=== PATIENT | female | born 1965 | race Caucasian/White ===

== ENCOUNTER → 2017-08-19 | Outpatient (CLI) | payer BC | LOC: M EKG 17:04 | DX: K58.9 Irritable bowel syndrome, unspecified (principal) ==

== ENCOUNTER → 2017-08-31 | Outpatient (CLI) | payer BC ==
[~2017-08-31] MED LIST: E-Z-GAS II EFFERVESCENT PACKET (SODIUM BICARB./CITRIC ACID/SIMETHICONE) As Ordered; E-Z-HD 98% w/w 340GM SUSP BTL As Ordered; E-Z-PAQUE 96% w/w SUSP 176GM BTL As Ordered
== END ==
LOC: M RAD 10:32
DX: R13.10 Dysphagia, unspecified (principal); R12 Heartburn
CPT/HCPCS: 74220

== ENCOUNTER 2017-09-28 11:59 | Day surgery (SDC) | payer BC ==
[2017-09-28] MEDS ORDERED: fentaNYL 100 MCG/2 ML INJECTION (J3010) As Ordered (12:41)
[2017-09-28] MEDS: NS 1,000 ML IV (13:07)
[2017-09-28] MEDS ORDERED: PROPOFOL 200 MG/20 ML VIAL As Ordered (13:21)
[2017-09-28] MEDS ORDERED: LIDOCAINE 2% INJ 100 MG/5 ML SDV (FOR ANES.) As Ordered (13:21)
== END 2017-09-28 15:00 | disposition home or self-care (01) ==
LOC: M OPP 11:59
DX: Z12.11 Encounter for screening for malignant neoplasm of colon (principal); D12.2 Benign neoplasm of ascending colon; K44.9 Diaphragmatic hernia without obstruction or gangrene; K20.0 Eosinophilic esophagitis; R13.10 Dysphagia, unspecified; K58.9 Irritable bowel syndrome, unspecified; K21.9 Gastro-esophageal reflux disease without esophagitis; F32.9 Major depressive disorder, single episode, unspecified; M12.9 Arthropathy, unspecified; Z78.0 Asymptomatic menopausal state; Z87.448 Personal history of other diseases of urinary system
CPT/HCPCS: 45385

== ENCOUNTER → 2020-06-18 | Outpatient (REF) | payer BC ==
[~2020-06-18] MED LIST changes: +BUPR1TAB53 PO; -E-Z-GAS II EFFERVESCENT PACKET (SODIUM BICARB./CITRIC ACID/SIMETHICONE) As Ordered; -E-Z-HD 98% w/w 340GM SUSP BTL As Ordered; -E-Z-PAQUE 96% w/w SUSP 176GM BTL As Ordered; +PANT40TA29 PO; +RANI150T PO
[2020-06-18 18:23] LABS: HEMATOCRIT 46.9 % (36.0-47.0); HEMOGLOBIN 14.8 g/dl (12.0-15.5); MEAN CORPUSCULAR HEMOGLOBIN 29.8 pg (27.0-33.0); MEAN CORPUSCULAR HGB CONC 31.6 g/dl (32.0-36.5); MEAN CORPUSCULAR VOLUME 94.4 fl (80.0-96.0); PLATELET COUNT, AUTOMATED 389 10^3/uL (150-450); RED BLOOD COUNT 4.97 10^6/uL (4.00-5.40); WHITE BLOOD COUNT 8.8 10^3/uL (4.0-10.0)
[2020-06-18 19:41] LABS: ALBUMIN 3.7 GM/DL (3.2-5.2); ALT/SGPT 19 U/L (12-78); BILIRUBIN,TOTAL 0.2 MG/DL (0.2-1.0); BLOOD UREA NITROGEN 11 MG/DL (7-18); CALCIUM LEVEL 9.4 MG/DL (8.5-10.1); CARBON DIOXIDE LEVEL 30 MEQ/L (21-32); CHLORIDE LEVEL 105 MEQ/L (98-107); CREATININE FOR GFR 0.83 MG/DL (0.55-1.30); GLOMERULAR FILTRATION RATE > 60.0 (>51); GLUCOSE, FASTING 75 MG/DL (70-100); POTASSIUM SERUM 4.5 MEQ/L (3.5-5.1); SODIUM LEVEL 140 MEQ/L (136-145); TOTAL PROTEIN 7.1 GM/DL (6.4-8.2)
== END ==
LOC: M SFHCADAM 14:58
PROVIDERS: ATTEND Physician Assistant
DX: J30.89 Other allergic rhinitis (principal); R41.3 Other amnesia; L65.9 Nonscarring hair loss, unspecified; R53.83 Other fatigue

== ENCOUNTER → 2020-08-08 | Outpatient (REF) | payer BC ==
[2020-08-08 15:42] LABS: THYROID PEROXIDASE ANTIBODY < 28.0 U/ML (<60.0)
== END ==
LOC: M SFHCADAM 10:51
PROVIDERS: ATTEND Physician Assistant
DX: E03.9 Hypothyroidism, unspecified (principal)

== ENCOUNTER → 2021-01-26 | Outpatient (CLI) | payer BC ==
[~2021-01-26] MED LIST changes: +LEVO25TA5; +OMEP-218
== END ==
LOC: M LABSMTC 10:50
PROVIDERS: ATTEND Anesthesiology
DX: Z01.812 Encounter for preprocedural laboratory examination (principal); Z11.52 Encounter for screening for COVID-19

== ENCOUNTER 2021-01-29 12:32 | Day surgery (SDC) | payer BC ==
[~2021-01-29] VITALS: Ht 160 cm; Wt 73.7 kg
[~2021-01-29 12:32] MED LIST changes: +NS 1,000 ML IV ONE
--- OUTSIDE RECORDS SUMMARY | 2021-01-29 12:37 | CCD ---
Author Author [facility] [employer] Organization [facility] [employer] Address Unknown Phone Unavailable Care Team Providers Care Personal Banking Officer Name Role Phone Lexi Corona Unavailable PROBLEMS Type Condition ICD9-CM Code [id number] Code Onset Dates Condition S tatus W/U Status Risk SNOMED Code Notes Problem Environmental and seasonal allergies J30.89 Act will confirmed 055207945 Problem Stress incontinence N39.3 Active confirmed 13712802 Resolved after surgery Problem Hypothyroidism (acquired) E03.9 Active confirmed [id number] Responding well to low-dose levothyroxine 25 mcg daily, with less fatigue Problem Depressive disorder F32.9 Active confirmed [id number] She is agreeable to starting the sertraline now, so I have resubmitted that prescription Problem Memory loss R41.3 Active confirmed [id number] She'll start sertraline tonight and I will see her back in a month Problem Flat wart B07.8 Active confirmed [id number] Derm in September Problem Gastroesophageal reflux disease, esophagitis pre sence not specified K21.9 Active confirmed [id number] Her insurance does not cover Nexium, so I am prescribing omeprazole, which she has taken in the past with good results Problem Non-seasonal allergic rhinitis, unspecified trigger J30.89 Active confirmed [id number] I reassured Darlyn araya there is sensation of fluid in her ears is likely due to some eustachian tube dysfunction. She will go back to using nasal spray ALLERGIES No Known Allergies ENCOUNTERS from 1965 to 2021-01-02 Encounter Location Date Provider Diagnosis [facility] [place] [address] [address] [place] [id number] Dec, Lexi Corona Hypothyroidism (acquired) E03.9 IMMUNIZATIONS Vaccine Route Administration Date Status Influenza 6mo & up Fluzone Unknown Dec 24, 2017 Refus ed SOCIAL HISTORY Tobacco Use: Social History Observation Description Date Details (start date - stop date) Former Smoker Sex Assigned At : Social History Observation Description Sex Assigned At Unknown Education: Question Answer Notes Level of Education: Finished High School Audit Question Answer Notes Total Score: 2 Interpretation: Alcohol Education Yazidi: Question Answer Notes Yazidi No yarsanism beliefs that would impact health care. Drug and Alcohol Question Answer Notes Total Score: 0 Interpretation: No problems reported Alcohol Screening: Question Answer Notes Did you have a drink containing alcohol in the past year? No Points 0 Interpretation Negative BMI Care Goal Follow-Up Question Answer Notes Above Normal BMI Follow-Up Dietary management educatio n, guidance, and counseling Tobacco Use: Question Answer Notes Are you a: former smoker How long has it been since you last smoked? > 10 years REASON FOR REFERRAL No Information VITAL SIGNS No information MEDICATIONS Medication SIG (Take, Route, Frequency, Duration) Notes Start Da te End Date Status Omeprazole 20 MG 1 capsule Orally Once a day for 30 Days 1 5 Jul, 2020 Active Sertraline HCl 25 MG 1 tablet Orally Once a day for 30 Days Jul, Active Physical Therapy evaluate and treat Mechanical eval & tx M25.511, pain in right shoulder 33x/wk x for 30 Days Jul, Ac tive Meloxicam 15 MG 1 tablet Orally Once a day as needed for pain fo r 30 Days Jul, Active Levothyroxine Sodium 25 MCG 1 tablet in the morning on an empty stomach Orally Once a day for 30 Days June, Active PROCEDURES No Information RESULTS No Results REASON FOR VISIT levothyroxine MEDICAL (GENERAL) HISTORY Type Description Date Medical History GERD Medical History seasonal allergies Medical History stress incontinence Surgical History umbilical hernia 2006 Surgical History sonogram left breast, and regular biopsy on the right Hospitalization History childbirth Goals Section No Information Health Concerns No Information MEDICAL EQUIPMENT No Information MENTAL STATUS No Information FUNCTIONAL STATUS No Information ASSESSMENTS Encounter Date Diagnosis Assessment Notes Treatment Notes Treatm ent Clinical Notes Dec, Hypothyroidism (acquired) (ICD-10 - E03.9) PLAN OF TREATMENT Medication Medication Name Sig Start Date Stop Date Levothyroxine Sodium 25 MCG 1 tablet in the morning on an empty stomach Orally Once a day for 30 Days June, Physical Therapy evaluate and treat Mechanical eval & tx M25.511, pain in right shoulder 33x/wk x for 30 Days Jul, Insurance Providers Payer Name Payer Address Payer Phone Insured Name Patient Relati onship to Insured Coverage Start Date Coverage End Date [facility] [address] [address] [facility] [id number] [address] [facility] PPO [phone] [facility] [place] [id number] [address] self
--- OUTSIDE RECORDS SUMMARY | 2021-01-29 12:37 | CCD ---
Author Author [facility] Organization [facility] Address Unknown Phone Unavailable Support Name Relationship Address Phone RE Next Of Kin Unknown Unavailable CONTACT, NO Next Of Kin Unknown Unavailable [employer] Next Of Kin [address] [place] [address] [employer] Next Of Kin [address] [address] [place] FAYE PALMER Next Of [place] [address] [place] [address] [address] [place] [address] FAYE PALMER Next Of Kin [address] [address] faye palmer [facility] [address] [place] [phone] Care Team Providers Care Clay Maker Name Role Phone Adonis REED MD Unavailable Unavailable REED, L MARCUS BRITTON Unavailable Unavailable REED, L MARCUS BRITTON Unavailable Unavailable REED, L MARCUS BRITTON Unavailable Unavailable REED, L MARCUS BRITTON Unavailable Unavailable REED, L MARCUS BRITTON Unavailable Unavailable REED, L MARCUS BRITTON Unavailable Unavailable REED, L MARCUS BRITTON Unavailable Unavailable REED, L MARCUS BRITTON Unavailable Unavailable REED, L MARCUS BRITTON Unavailable Unavailable REED, L MARCUS BRITTON Unavailable Unavailable REED, L MARCUS BRITTON Unavailable Unavailable REED, L MARCUS BRITTON Unavailable Unavailable REED, L MARCUS BRITTON Unavailable Unavailable REED, L MARCUS BRITTON Unavailable Unavailable REED, L MARCUS BRITTON Unavailable Unavailable REED, L MARCUS BRITTON Unavailable Unavailable REED, L MARCUS BRITTON Unavailable Unavailable REED, L MARCUS BRITTON Unavailable Unavailable REED, L MARCUS BRITTON Unavailable Unavailable REED, L MARCUS BRITTON Unavailable Unavailable REED, L MARCUS BRITTON Unavailable Unavailable REED, L MARCUS BRITTON Unavailable Unavailable REED, L MARCUS BRITTON Unavailable Unavailable REED, L MARCUS BRITTON Unavailable Unavailable REED, L MARCUS BRITTON Unavailable Unavailable REED, L MARCUS BRITTON Unavailable Unavailable REED, L MARCUS BRITTON Unavailable Unavailable REED, L MARCUS BRITTON Unavailable Unavailable REED, L MARCUS BRITTON Unavailable Unavailable REED, L MARCUS BRITTON Unavailable Unavailable REED, L MARCUS BRITTON Unavailable Unavailable REED, L MARCUS BRITTON Unavailable Unavailable REED, L MARCUS BRITTON Unavailable Unavailable REED, L MARCUS BRITTON Unavailable Unavailable REED, L MARCUS BRITTON Unavailable Unavailable REED, L MARCUS BRITTON Unavailable Unavailable REED, L MARCUS BRITTON Unavailable Unavailable REED, L MARCUS BRITTON Unavailable Unavailable REED, L MARCUS BRITTON Unavailable Unavailable REED, L MARCUS BRITTON Unavailable Unavailable REED, L MARCUS BRITTON Unavailable Unavailable REED, L MARCUS BRITTON Unavailable Unavailable REED, L MARCUS BRITTON Unavailable Unavailable REED, L MARCUS BRITTON Unavailable Unavailable REED, L MARCUS BRITTON Unavailable Unavailable REED, L MARCUS BRITTON Unavailable Unavailable REED, L MARCUS BRITTON Unavailable Unavailable REED, L MARCUS BRITTON Unavailable Unavailable REED, L MARCUS BRITTON Unavailable Unavailable REED, L MARCUS BRITTON Unavailable Unavailable REED, L MARCUS BRITTON Unavailable Unavailable REED, L MARCUS BRITTON Unavailable Unavailable REED, L MARCUS BRITTON Unavailable Unavailable REED, L MARCUS BRITTON Unavailable Unavailable REED, L MARCUS BRITTON Unavailable Unavailable REED, L MACRUS BRITTON Unavailable Unavailable REED, L MARCUS BRITTON Unavailable Unavailable REED, L MARCUS BRITTON Unavailable Unavailable REED, L MARCUS BRITTON Unavailable Unavailable REED, L MARCUS BRITTON Unavailable Unavailable REED, L MARCUS BRITTON Unavailable Unavailable REED, L MARCUS BRITTON Unavailable Unavailable REED, L MARCUS BRITTON Unavailable Unavailable REED, L MARCUS BRITTON Unavailable Unavailable REED, L MARCUS BRITTON Unavailable Unavailable REED, L MARCUS BRITTON Unavailable Unavailable REED, L MARCUS BRITTON Unavailable Unavailable REED, L MARCUS BRITTON Unavailable Unavailable REED, L MARCUS BRITTON Unavailable Unavailable REED, L MARCUS BRITTON Unavailable Unavailable REED, L MARCUS BRITTON Unavailable Unavailable REED, L MARCUS BRITTON Unavailable Unavailable REED, L MARCUS BRITTON Unavailable Unavailable REED, L MARCUS BRITTON Unavailable Unavailable REED, L MARCUS BRITTON Unavailable Unavailable REED, L MARCUS BRITTON Unavailable Unavailable REED, L MARCUS BRITTON Unavailable Unavailable REED, L MARCUS RBITTON Unavailable Unavailable REED, L MARCUS BRITTON Unavailable Unavailable REED, L MARCUS BRITTON Unavailable Unavailable REED, L MARCUS BRITTON Unavailable Unavailable REED, L MARCUS BRITTON Unavailable Unavailable REED, L MARCUS BRITTON Unavailable Unavailable REED, L MARCUS MD Unavailable Unavailable Adonis REED MD Unavailable Unavailable Adonis REED MD Unavailable Unavailable Adonis REED MD Unavailable Unavailable Adonis REED MD Unavailable Unavailable Adonis REED MD Unavailable Unavailable Mil, Meghann Unavailable Unavailable Mil, Meghann Unavailable Unavailable Mil, Meghann Unavailable Unavailable Mil, Meghann Unavailable Unavailable Mil, Meghann Unavailable Unavailable Mil, Meghann Unavailable Unavailable Mil, Meghann Unavailable Unavailable Mil, Meghann Unavailable Unavailable Mil, Meghann Unavailable Unavailable Mil, Meghann Unavailable Unavailable Mil, Meghann Unavailable Unavailable Mil, Meghann Unavailable Unavailable Mil, Meghann Unavailable Unavailable Mil, Meghann Unavailable Unavailable Mil, Meghann Unavailable Unavailable Frye, D Debra TANNERY WORKER Unavailable Unavailable Frye, D Debra TANNERY WORKER Unavailable Unavailable Frye, D Debra TANNERY WORKER Unavailable Unavailable Frye, D Debra TANNERY WORKER Unavailable Unavailable Frye, D Debra TANNERY WORKER Unavailable Unavailable Frye, D Debra TANNERY WORKER Unavailable Unavailable Frye, D Debra TANNERY WORKER Unavailable Unavailable Frye, D Debra TANNERY WORKER Unavailable Unavailable Frye, D Debra TANNERY WORKER Unavailable Unavailable Frye, D Debra TANNERY WORKER Unavailable Unavailable Frye, D Debra TANNERY WORKER Unavailable Unavailable Frye, D Debra TANNERY WORKER Unavailable Unavailable Frye, D Debra TANNERY WORKER Unavailable Unavailable Frye, D Debra TANNERY WORKER Unavailable Unavailable Frye, D Debra TANNERY WORKER Unavailable Unavailable Frye, D Debra TANNERY WORKER Unavailable Unavailable Frye, D Debra TANNERY WORKER Unavailable Unavailable Frye, D Debra TANNERY WORKER Unavailable Unavailable Frye, D Debra TANNERY WORKER Unavailable Unavailable Frye, D Debra TANNERY WORKER Unavailable Unavailable Frye, D Debra TANNERY WORKER Unavailable Unavailable Frye, D Debra TANNERY WORKER Unavailable Unavailable Frye, D Debra TANNERY WORKER Unavailable Unavailable Frye, D Debra TANNERY WORKER Unavailable Unavailable Frye, D Debra TANNERY WORKER Unavailable Unavailable Frye, D Debra TANNERY WORKER Unavailable Unavailable Frye, D Debra TANNERY WORKER Unavailable Unavailable Frye, D Debra TANNERY WORKER Unavailable Unavailable Frye, D Debra TANNERY WORKER Unavailable Unavailable Frye, D Debra TANNERY WORKER Unavailable Unavailable Frye, D Debra TANNERY WORKER Unavailable Unavailable Frye, D Debra TANNERY WORKER Unavailable Unavailable Frye, D Debra TANNERY WORKER Unavailable Unavailable Frye, D Debra TANNERY WORKER Unavailable Unavailable Frye, D Debra TANNERY WORKER Unavailable Unavailable Frye, D Debra TANNERY WORKER Unavailable Unavailable Frye, D Debra TANNERY WORKER Unavailable Unavailable Frye, D Debra TANNERY WORKER Unavailable Unavailable Frye, D Debra TANNERY WORKER Unavailable Unavailable Frye, D Debra TANNERY WORKER Unavailable Unavailable Frye, D Debra TANNERY WORKER Unavailable Unavailable Frye, D Debra TANNERY WORKER Unavailable Unavailable Frye, D Debra TANNERY WORKER Unavailable Unavailable Frye, D Debra TANNERY WORKER Unavailable Unavailable Frye, D Debra TANNERY WORKER Unavailable Unavailable Frye, D Debra TANNERY WORKER Unavailable Unavailable Frye, D Debra TANNERY WORKER Unavailable Unavailable Frye, D Debra TANNERY WORKER Unavailable Unavailable Frye, D Debra TANNERY WORKER Unavailable Unavailable Frye, D Debra TANNERY WORKER Unavailable Unavailable Frye, D Debra TANNERY WORKER Unavailable Unavailable Frye, D Debra TANNERY WORKER Unavailable Unavailable Frye, D Debra TANNERY WORKER Unavailable Unavailable Frye, D Debra TANNERY WORKER Unavailable Unavailable Frye, D Debra TANNERY WORKER Unavailable Unavailable Frye, D Debra TANNERY WORKER Unavailable Unavailable Frye, D Debra TANNERY WORKER Unavailable Unavailable Frye, D Debra TANNERY WORKER Unavailable Unavailable Frye, D Debra TANNERY WORKER Unavailable Unavailable Frye, D Debra TANNERY WORKER Unavailable Unavailable Frye, D Debra TANNERY WORKER Unavailable Unavailable Frye, D Debra TANNERY WORKER Unavailable Unavailable Frye, D Debra TANNERY WORKER Unavailable Unavailable Frye, D Debra TANNERY WORKER Unavailable Unavailable Frye, D Debra TANNERY WORKER Unavailable Unavailable Frye, D Debra TANNERY WORKER Unavailable Unavailable Frye, D Debra TANNERY WORKER Unavailable Unavailable Frye, D Debra TANNERY WORKER Unavailable Unavailable Frye, D Debra TANNERY WORKER Unavailable Unavailable Frye, D Debra TANNERY WORKER Unavailable Unavailable Frye, D Debra TANNERY WORKER Unavailable Unavailable Frye, D Debra TANNERY WORKER Unavailable Unavailable Frye, D Debra TANNERY WORKER Unavailable Unavailable Frye, D Debra TANNERY WORKER Unavailable Unavailable Frye, D Debra TANNERY WORKER Unavailable Unavailable Frye, D Debra TANNERY WORKER Unavailable Unavailable Frye, D Debra TANNERY WORKER Unavailable Unavailable Frye, D Debra TANNERY WORKER Unavailable Unavailable Frye, D Debra TANNERY WORKER Unavailable Unavailable Frye, D Debra TANNERY WORKER Unavailable Unavailable Frye, D Debra TANNERY WORKER Unavailable Unavailable Frye, D Debra TANNERY WORKER Unavailable Unavailable Frye, D Debra TANNERY WORKER Unavailable Unavailable Frye, D Debra TANNERY WORKER Unavailable Unavailable Frye, D Debra TANNERY WORKER Unavailable Unavailable Frye, D Debra TANNERY WORKER Unavailable Unavailable Frye, D Debra TANNERY WORKER Unavailable Unavailable Frye, D Debra TANNERY WORKER Unavailable Unavailable Frye, D Debra TANNERY WORKER Unavailable Unavailable Frye, D Debra TANNERY WORKER Unavailable Unavailable Frye, D Debra TANNERY WORKER Unavailable Unavailable Frye, D Debra TANNERY WORKER Unavailable Unavailable Frye, D Debra TANNERY WORKER Unavailable Unavailable Frye, D Debra TANNERY WORKER Unavailable Unavailable Frye, D Debra TANNERY WORKER Unavailable Unavailable Frye, D Debra TANNERY WORKER Unavailable Unavailable Frye, D Debra TANNERY WORKER Unavailable Unavailable Frye, D Debra TANNERY WORKER Unavailable Unavailable Frye, D Debra TANNERY WORKER Unavailable Unavailable Frye, D Debra TANNERY WORKER Unavailable Unavailable Frye, D Debra TANNERY WORKER Unavailable Unavailable Frye, D Debra TANNERY WORKER Unavailable Unavailable Frye, D Debra TANNERY WORKER Unavailable Unavailable Frye, D Debra TANNERY WORKER Unavailable Unavailable Frye, D Debra TANNERY WORKER Unavailable Unavailable Frye, D Debra TANNERY WORKER Unavailable Unavailable Re-disclosure Warning The records that you are about to access may contain information from federally-assisted alcohol or drug abuse programs. If such information is present, then the following federally mandated warning applies: This information has been disclosed to you from records protected by federal confidentiality rules (42 CFR part 2). The federal rules prohibit you from making any further disclosure of this information unless further disclosure is expressly permitted by the written consent of the person to whom it pertains or as otherwise permitted by 42 CFR part 2. A general authorization for the release of medical or other information is NOT sufficient for this purpose. The Federal rules restrict any use of the information to criminally investigate or prosecute any alcohol or drug abuse patient.The records that you are about to access may contain highly sensitive health information, the redisclosure of which is protected by Article 27-F of the [place] Public [employer] law. If you continue you may have access to information: Regarding HIV / AIDS; Provided by facilities licensed or operated by the [place] Office of Mental Health; or Provided by the [place] [facility] Office for People With Developmental Disabilities. If such information is present, then the following [facility] mandated warning applies: This information has been disclosed to you from confidential records which are protected by state law. State law prohibits you from making any further disclosure of this information without the specific written consent of the person to whom it pertains, or as otherwise permitted by law. Any unauthorized further disclosure in violation of state law may result in a fine or custodial sentence or both. A general authorization for the release of medical or other information is NOT sufficient authorization for further disc losure. Family History Family Member Name Family Member Gender Family Member Status Date o f Status Description Data Source(s) Unknown Unknown Problem MEDENT ([facility]) Unknown Unknown Problem MEDENT ([facility], ) Encounters Encounter Providers Location Date Indications Data Source(s ) Unknown [address] [facility] [address] 01/01/2021 12:00:00 AM EDT eCW1 ([facility]) Unknown [address] [facility] [address] 10/25/2020 12:00:00 AM EDT eCW1 ([facility]) Outpatient Referrer: Debra Frye NP 10/15/2020 11:05:09 AM EDT [facility] Outpatient Referrer: Debra Frye NP 10/15/2020 10:00:09 AM EDT [facility] Outpatient Attender: Debra STATON 10/15/2020 0 8:34:44 AM EDT [facility] Unknown [address] [facility] [address] 10/01/2020 12:00:00 AM EDT eCW1 ([facility]) Outpatient Attender: MARCUS Todd Woman manager bench 02:15:00 PM EDT [facility] ([facility]) TeleMedicine Phone E/M by Elizabeth 21-[address] [place] [phone] 08/24/2020 12:00:00 AM EDT eCW1 ([facility]) Outpatient [address] [facility] [address] 08/14/2020 12:00:00 AM EDT eCW1 ([facility]) Unknown [address] [facility] [address] 07/19/2020 12:00:00 AM EDT eCW1 ([facility]) Outpatient [address] [facility] [address] 07/02/2020 12:00:00 AM EDT eCW1 ([facility]) Outpatient [address] [facility] [id number] 06/18/2020 12:00:00 AM EDT eCW1 ([facility]) Outpatient Referrer: Debra Frye NP 04/16/2020 09:59[facility] 03:19[facility]23 [facility] Outpatient Attender: Debra [place] 04/10 11:13:33 AM EST - 04/10/2020 12:17:10 PM [facility] Outpatient Referrer: Meghann Jageer 03/29/2020 09:45:03 AM ES T [facility] Outpatient Referrer: MARCUS REED MD 11/29/2019 12: 00:00 AM EDT Encounter for screening mammogram for malignant neoplasm of breast [facility] Encounter for screening mammogram for ma lignant neoplasm of breast Medications Medication Brand Name Start Date Product Form Dose Route Admi nistrative Instructions Pharmacy Instructions Status Indications Reaction Description Data Source(s) 25 mcg 01/02/2021 12:00:00 AM EDT tablet 30 TAKE ONE TABLET BY MOUTH EVERY MORNING ON AN EMPTY STOMACH TAKE ONE TABLET BY MOUTH EVERY MORNING O N AN EMPTY STOMACH SOLD: 01/02/2021 [facility] SUPREP BOWEL PREP KIT 17.5-3.13-1.6 gram SODIUM, POTASSIUM,M AG SULFATES 10/19/2020 12:00:00 AM EDT recon soln 354 USE DIRECTED USE DIRECTED SOLD: 10/26/2020 [facility] magnesium citrate 58.2 MG/ML Oral Solution Magnesium Citrate 10/19/2020 12:00:00 AM EDT active MEDENT ([facility], ) Suprep Bowel Prep Kit Suprep Bowel Prep Kit 10/19/2020 12:00:00 AM EDT active MEDENT ([facility], ) POLYETHYLENE GLYCOL 3350 142 MG/ML Oral Solution [Miralax] M iralax 10/19/2020 12:00:00 AM EDT active M EDENT ([facility], ) Levothyroxine Sodium 0.025 MG Oral Table t levothyroxine (SYNTHROID, LEVOTHROID) 25 MCG tablet levothyroxine (SYNTHROID, LEVOTHROID) 25 MCG tablet 12:00:00 AM EDT active TAKE ONE TABLET BY MOUTH EVERY MORNING ON AN EMPTY STOMACH [facility] meloxicam 15 MG Oral Tablet meloxicam (MOBIC) 15 MG ta blet meloxicam (MOBIC) 15 MG tablet 10/01/2020 12:00:00 AM EDT active TAKE ONE TABLET BY MOUTH EVERY DAY NEEDED FOR PAIN [facility] Sertraline 25 MG Oral Tablet sertraline (ZOLOFT) 25 MG tablet sertraline (ZOLOFT) 25 MG tablet 10/01/2020 12:00:00 AM EDT 25 mg Oral active Take 25 mg by mouth daily [facility] Omeprazole 20 MG Delayed Release Oral Ca psule omeprazole (PriLOSEC) 20 MG capsule omeprazole (PriLOSEC) 20 MG capsule 10/01/2020 12:00:00 AM EDT 20 mg Oral active Take 20 mg by mouth daily [facility] Physical Therapy evaluate and treat UNK 08/24/2020 12:00:00 AM EDT active Physical Therapy evaluate and tr eat eCW1 ([facility]) Physical Therapy evaluate and treat UNK 08/24/2020 12:00:00 AM EDT active Physical Therapy evaluate and tr eat eCW1 ([facility]) Physical Therapy evaluate and treat UNK 08/24/2020 12:00:00 AM EDT active Physical Therapy evaluate and tr eat eCW1 ([facility]) Physical Therapy evaluate and treat UNK 08/24/2020 12:00:00 AM EDT active Physical Therapy evaluate and tr eat eCW1 ([facility]) Physical Therapy evaluate and treat UNK 08/24/2020 12:00:00 AM EDT active Physical Therapy evaluate and tr eat eCW1 ([facility]) meloxicam 15 MG Oral Tablet Meloxicam 15 MG Meloxicam 15 MG 08/14/2020 12:00:00 AM EDT 1.0 {tablet} active Meloxicam 1 5 MG eCW1 ([facility]) Sertraline 25 MG Oral Tablet Sertraline HCl 25 MG Sertraline HCl 25 MG 08/14/2020 12:00:00 AM EDT 1.0 {tablet} active Sertraline HCl 25 MG eCW1 ([facility]) Sertraline 25 MG Oral Tablet Sertraline HCl 25 MG Sertraline HCl 25 MG 08/14/2020 12:00:00 AM EDT 1.0 {tablet} active Sertraline HCl 25 MG eCW1 ([facility]) 20 mg 08/14/2020 12:00:00 AM EDT capsule,delayed release (DR/EC) 30 TAKE ONE CAPSULE BY MOUTH EVERY DAY TAKE ONE CAPSULE BY MOUTH EVERY DAY SOLD: 08/14/2020 [facility] Omeprazole 20 MG Delayed Release Oral Capsule Omeprazole 20 MG 08/14/2020 12:00:00 AM EDT 1.0 {capsule} active O meprazole 20 MG eCW1 ([facility]) 25 mg 08/14/2020 12:00:00 AM EDT tablet 30 TAKE ONE TABLET BY MOUTH EVERY DAY TAKE ONE TABLET BY MOUTH EVERY DAY SOLD: 10/01/2020 [facility] 15 mg 08/14/2020 12:00:00 AM EDT tablet 30 TAKE ONE TABLET BY MOUTH EVERY DAY NEEDED FOR PAIN TAKE ONE TABLET BY MOUTH EVERY DAY NEEDED FOR PAIN SOLD: 12/04/2020 [facility] 15 mg 08/14/2020 12:00:00 AM EDT tablet 30 TAKE ONE TABLET BY MOUTH EVERY DAY NEEDED FOR PAIN TAKE ONE TABLET BY MOUTH EVERY DAY NEEDED FOR PAIN SOLD: 10/30/2020 [facility] Sertraline 25 MG Oral Tablet Sertraline HCl 25 MG Sertraline HCl 25 MG 08/14/2020 12:00:00 AM EDT 1.0 {tablet} active Sertraline HCl 25 MG eCW1 ([facility]) meloxicam 15 MG Oral Tablet Meloxicam 15 MG Meloxicam 15 MG 08/14/2020 12:00:00 AM EDT 1.0 {tablet} active Meloxicam 1 5 MG eCW1 ([facility]) Sertraline 25 MG Oral Tablet Sertraline HCl 25 MG Sertraline HCl 25 MG 08/14/2020 12:00:00 AM EDT 1.0 {tablet} active Sertraline HCl 25 MG eCW1 ([facility]) 25 mg 08/14/2020 12:00:00 AM EDT tablet 30 TAKE ONE TABLET BY MOUTH EVERY DAY TAKE ONE TABLET BY MOUTH EVERY DAY SOLD: 10/30/2020 [facility] 15 mg 08/14/2020 12:00:00 AM EDT tablet 30 TAKE ONE TABLET BY MOUTH EVERY DAY NEEDED FOR PAIN TAKE ONE TABLET BY MOUTH EVERY DAY NEEDED FOR PAIN SOLD: 10/01/2020 [facility] meloxicam 15 MG Oral Tablet Meloxicam 15 MG Meloxicam 15 MG 08/14/2020 12:00:00 AM EDT 1.0 {tablet} active Meloxicam 1 5 MG eCW1 ([facility]) 20 mg 08/14/2020 12:00:00 AM EDT capsule,delayed release (DR/EC) 30 TAKE ONE CAPSULE BY MOUTH EVERY DAY TAKE ONE CAPSULE BY MOUTH EVERY DAY SOLD: 12/04/2020 [facility] 20 mg 08/14/2020 12:00:00 AM EDT capsule,delayed release (DR/EC) 30 TAKE ONE CAPSULE BY MOUTH EVERY DAY TAKE ONE CAPSULE BY MOUTH EVERY DAY SOLD: 10/30/2020 [facility] meloxicam 15 MG Oral Tablet Meloxicam 15 MG Meloxicam 15 MG 08/14/2020 12:00:00 AM EDT 1.0 {tablet} active Meloxicam 1 5 MG eCW1 ([facility]) meloxicam 15 MG Oral Tablet Meloxicam 15 MG Meloxicam 15 MG 08/14/2020 12:00:00 AM EDT 1.0 {tablet} active Meloxicam 1 5 MG eCW1 ([facility]) 15 mg 08/14/2020 12:00:00 AM EDT tablet 30 TAKE ONE TABLET BY MOUTH EVERY DAY NEEDED FOR PAIN TAKE ONE TABLET BY MOUTH EVERY DAY NEEDED FOR PAIN SOLD: 08/14/2020 [facility] Omeprazole 20 MG Delayed Release Oral Capsule Omeprazole 20 MG 08/14/2020 12:00:00 AM EDT 1.0 {capsule} active O meprazole 20 MG eCW1 ([facility]) Omeprazole 20 MG Delayed Release Oral Capsule Omeprazole 20 MG 08/14/2020 12:00:00 AM EDT 1.0 {capsule} active O meprazole 20 MG eCW1 ([facility]) Omeprazole 20 MG Delayed Release Oral Capsule Omeprazole 20 MG 08/14/2020 12:00:00 AM EDT 1.0 {capsule} active O meprazole 20 MG eCW1 ([facility]) 20 mg 08/14/2020 12:00:00 AM EDT capsule,delayed release (DR/EC) 30 TAKE ONE CAPSULE BY MOUTH EVERY DAY TAKE ONE CAPSULE BY MOUTH EVERY DAY SOLD: 10/01/2020 [facility] Sertraline 25 MG Oral Tablet Sertraline HCl 25 MG Sertraline HCl 25 MG 08/14/2020 12:00:00 AM EDT 1.0 {tablet} active Sertraline HCl 25 MG eCW1 ([facility]) Omeprazole 20 MG Delayed Release Oral Capsule Omeprazole 20 MG 08/14/2020 12:00:00 AM EDT 1.0 {capsule} active O meprazole 20 MG eCW1 ([facility]) 25 mg 08/14/2020 12:00:00 AM EDT tablet 30 TAKE ONE TABLET BY MOUTH EVERY DAY TAKE ONE TABLET BY MOUTH EVERY DAY SOLD: 08/14/2020 [facility] 25 mcg 07/03/2020 12:00:00 AM EDT tablet 30 TAKE ONE TABLET BY MOUTH EVERY MORNING ON AN EMPTY STOMACH TAKE ONE TABLET BY MOUTH EVERY MORNING O N AN EMPTY STOMACH SOLD: 10/01/2020 [facility] 25 mcg 07/03/2020 12:00:00 AM EDT tablet 30 TAKE ONE TABLET BY MOUTH EVERY MORNING ON AN EMPTY STOMACH TAKE ONE TABLET BY MOUTH EVERY MORNING O N AN EMPTY STOMACH SOLD: 08/03/2020 [facility] 25 mcg 07/03/2020 12:00:00 AM EDT tablet 30 TAKE ONE TABLET BY MOUTH EVERY MORNING ON AN EMPTY STOMACH TAKE ONE TABLET BY MOUTH EVERY MORNING O N AN EMPTY STOMACH SOLD: 08/31/2020 [facility] 25 mcg 07/03/2020 12:00:00 AM EDT tablet 30 TAKE ONE TABLET BY MOUTH EVERY MORNING ON AN EMPTY STOMACH TAKE ONE TABLET BY MOUTH EVERY MORNING O N AN EMPTY STOMACH SOLD: 10/30/2020 [facility] 25 mcg 07/03/2020 12:00:00 AM EDT tablet 30 TAKE ONE TABLET BY MOUTH EVERY MORNING ON AN EMPTY STOMACH TAKE ONE TABLET BY MOUTH EVERY MORNING O N AN EMPTY STOMACH SOLD: 12/04/2020 [facility] 25 mcg 07/03/2020 12:00:00 AM EDT tablet 30 TAKE ONE TABLET BY MOUTH EVERY MORNING ON AN EMPTY STOMACH TAKE ONE TABLET BY MOUTH EVERY MORNING O N AN EMPTY STOMACH SOLD: 07/03/2020 [facility] Levothyroxine Sodium 0.025 MG Oral Tablet Levothyroxin e Sodium 25 MCG Levothyroxine Sodium 25 MCG 07/02/2020 12:00:00 AM EDT active Levothyroxine Sodium 25 MCG eCW1 ([facility]) Levothyroxine Sodium 0.025 MG Oral Tablet Levothyroxin e Sodium 25 MCG Levothyroxine Sodium 25 MCG 07/02/2020 12:00:00 AM EDT active Levothyroxine Sodium 25 MCG eCW1 ([facility]) Levothyroxine Sodium 0.025 MG Oral Tablet Levothyroxin e Sodium 25 MCG Levothyroxine Sodium 25 MCG 07/02/2020 12:00:00 AM EDT active Levothyroxine Sodium 25 MCG eCW1 ([facility]) Levothyroxine Sodium 0.025 MG Oral Tablet Levothyroxin e Sodium 25 MCG Levothyroxine Sodium 25 MCG 07/02/2020 12:00:00 AM EDT active Levothyroxine Sodium 25 MCG eCW1 ([facility]) Levothyroxine Sodium 0.025 MG Oral Tablet Levothyroxin e Sodium 25 MCG Levothyroxine Sodium 25 MCG 07/02/2020 12:00:00 AM EDT active Levothyroxine Sodium 25 MCG eCW1 ([facility]) Levothyroxine Sodium 0.025 MG Oral Tablet Levothyroxin e Sodium 25 MCG Levothyroxine Sodium 25 MCG 07/02/2020 12:00:00 AM EDT active Levothyroxine Sodium 25 MCG eCW1 ([facility]) Levothyroxine Sodium 0.025 MG Oral Tablet Levothyroxin e Sodium 25 MCG Levothyroxine Sodium 25 MCG 07/02/2020 12:00:00 AM EDT active Levothyroxine Sodium 25 MCG eCW1 ([facility]) Levothyroxine Sodium 0.025 MG Oral Tablet Levothyroxin e Sodium 25 MCG Levothyroxine Sodium 25 MCG 07/02/2020 12:00:00 AM EDT active Levothyroxine Sodium 25 MCG eCW1 ([facility]) 800 mg 01/11/2020 12:00:00 AM EST tablet 20 TAKE ONE TABLET BY MOUTH EVERY 6 HOURS NEEDED FOR PAIN MAXIMUM DAILY DOSE = 4 TAKE ONE TABLET BY MOUTH EVERY 6 HOURS NEEDED FOR PAIN MAXIMUM DAILY DOSE = 4 SOLD: 01/11/2020 [facility] 5-325 mg 01/11/2020 12:00:00 AM EST tablet 12 TAKE ONE TABLET BY MOUTH EVERY 6 HOURS NEEDED FOR PAIN MAXIMUM DAILY DOSE = 4 TAKE ONE TABLET BY MOUTH EVERY 6 HOURS NEEDED FOR PAIN MAXIMUM DAILY DOSE = 4 SOLD: 01/11/2020 [facility] Clindamycin 150 MG Oral Capsule CLINDAMYCIN HCL 12/06/2019 12:00 :00 AM EDT capsule 42 TAKE TWO CAPSULES BY MOUTH EVERY 8 HOURS UNTIL GONE TAKE TWO CAPSULES BY MOUTH EVERY 8 HOURS UNTIL GONE SOLD: 12/06/2019 [facility] Insurance Providers Payer name Policy type / Coverage type Policy ID Covered green party ID Covered green party's relationship to rodríguez Policy Rodríguez Plan Information BLUE CARD C [id number] Self [id number] EXCELLUS BCBS [id number] EXCELLUS BCBS [id number] Starr [id number] EXCELLUS C [id number] Self [id number] BLUE CROSS [id number] SP [id number] BLUE CROSS FED EMPLOYEE PLAN [id number] SP [id number] BLUE CROSS 2 [id number] SPO [id number] EXCELLUS BCBS [id number] EXCELLUS BCBS [id number] Spo TNY [id number] BLUE CROSS [id number] SPO [id number] BCBS FEDERAL EMPLOYEE PROGRAM [id number] WI2 [id number] ANSI-Not a Secondary Insurance [id number] ANSI-Commercial [id number] [place]BS [place] PPO 302/307 [id number] ANSI-Commercial [id number] ANSI-Not a Secondary Insurance [id number] ANSI-Commercial [id number] ANSI-Not a Secondary Insurance [id number] BC/BS Federal [id number] Blue Cross/Shield [id number] ID IDENTIFICATION [id number] Other Insurance [id number] BS Of [facility] Part B [id number] Family Dependent [id number] BS Fep Commercial [id number] Self [id number] BS Of [facility] Part B [id number] Family Dependent [id number] BS Fep Commercial [id number] Self [id number] [employer] BCBS Medigap Part B [id number] Family Dependent [id number] [facility] ([facility]) [id number] Self [id number] EXCELLUS BC-BS PPO [id number] BCBS FEDERAL EMPLOYEE PROGRAM [id number] SP [id number] [place]BS [place] PPO 302/307 [id number] SP [id number] BCBS FEDERAL EMPLOYEE PROGRAM [id number] BC BS [place] FEDERAL B [id number] S [id number] EXCELLUS BCBS B [id number] P [id number] EXCELLUS BCBS B [id number] S TNY [id number] BS Of [place] Medigap Part B [id number] Family Dependent [id number] BS Fep Commercial [id number] Self [id number] BCBS [place] PPO 302/307 [id number] SP [id number] Problems, Conditions, and Diagnoses Code Display Name Description Problem Type Effective Dates Data Source(s) F32.9 05793466 Depressive disorder Problem 08/14/2020 12:00 :00 AM EDT eCW1 ([facility]) E03.9 [id number] Hypothyroidism (acquired) Problem 07/02/2020 12:00:00 AM EDT eCW1 ([facility]) R92.8 Abnormal finding on breast imaging Abnormal find ing on breast imaging [id number] 03/29/2020 12:00:00 AM EST [facility] Surgeries/Procedures Procedure Description Date Indications Data Source(s) PERIODIC PREVENTIVE MED EST PATIENT 40-64YRS 12:00:00 AM EDT [facility] ([facility]) Results ID Date Data Source [id number] 01/26/2021 10:35:00 AM EST [facility] Name Value Range Interpretation Code Description Data Ann rce(s) Supporting Document(s) SARS-CoV-2 (COVID-19) RNA [Presence] in Respiratory specimen by ESTHER with probe detection Not Detected [facility] This lab was ordered by [facility] and reported by [employer]. ID Date Data Source [id number] 10/15/2020 11:01:46 AM EDT [facility] INFORMATIONPatient MRN Name Date of Age Gend*PT [id number] Kelvin Palmervobrit Archuleta 1965 54 years F ---PT Location Admission Date/Time Visit ID Attending Provider --- --- --- --- EPI ID CSN Admitting Provider [id number] ---10/15/20 Sydnee Kathe Palmer [id number] female 54 yearsYvbrandie Palmer was first seen in 04/10/20for abnormal imaging.She went for a screening mammogram on 11/29/19 which showed bilateral group ofcalcifications. She also had a focal asymmetry in the left breast. Spot viewswere done and bx was recommended on bilateral breast calcifications. bx wasdone on 04/10/20 and the bilateral calcifications were benign and follow up wasrecommended in 6 months.She was also found to have a hypoechoic nodule measuring 8 mm in the left breastwhich u/s guided core bx was recommended.BX was done 04/10/20 and pathology was benign and follow up was recommended. She denies any nipple discharge, dimpling or nipple retractions. She denies anypalpable masses. She is 5 para 3, the age of of her first child is16. She was [age] at age of menarche and 47 with menopause. She denies any HRT.She denies any previous breast surgeries or biopsies. She goes yearly for hermammograms. She has no family history of breast cancer. She has no familyhistory of ovarian, prostate or pancreatic cancers. Bilateral mammogram from today was benign. She was given a category C fordensity.Left sono showed a decrease in complex cyst in the left breast.Current Meds:Current Outpatient Medications: levothyroxine (SYNTHROID, LEVOTHROID) 25 MCG tablet, TAKE ONE TABLET BY MOUTHEVERY MORNING ON AN EMPTY STOMACH, Disp: , Rfl: meloxicam (MOBIC) 15 MG tablet, TAKE ONE TABLET BY MOUTH EVERY DAY NEEDEDFOR PAIN, Disp: , Rfl: omeprazole (PriLOSEC) 20 MG capsule, Take 20 mg by mouth daily, Disp: , Rfl: sertraline (ZOLOFT) 25 MG tablet, Take 25 mg by mouth daily, Disp: , Rfl:Allergies: No Known Drug AllergiesPast Medical History:Diagnosis Date Depression Disease of thyroid gland GERD (gastroesophageal reflux disease)Family HistoryProblem Relation Age of Onset Cancer Mother Ovarian cancer Mother 70 Cancer Father Throat cancer Father 70Social HistorySocioeconomic History Marital status: Spouse name: Not on file Number of children: Not on file Years of education: Not on file Highest education level: Not on fileOccupational History Not on fileTobacco Use Smoking status: Former Smoker Smokeless tobacco: Never UsedSubstance and Sexual Activity Alcohol use: Yes Comment: very rare Drug use: Never Sexual activity: Not on fileOther Topics Concern Bike Helmet Not Asked History of Falls Not Asked Self-Exams Not Asked Caffeine Concern Not Asked Hobby Hazards Not Asked Sleep Concern Not Asked Daily Calcium Supplement Not Asked Lead Exposure Not Asked Special Diet Not Asked Daily Vitamin D Supplement Not Asked Service Not Asked Stress Concern Not Asked Domestic Violence in home Not Asked Radon exposure Not Asked Weight Concern Not Asked Exercise Not Asked Seat Belt Not Asked Well water Not Asked Firearms in home Not AskedSocial History Narrative Not on fileSocial Determinants of HealthFinancial Resource Strain: Difficulty of Paying Living Expenses:Food Insecurity: Worried About Running Out of Food in the Last Year: Ran Out of Food in the Last Year:Transportation Needs: Lack of Transportation (Medical): Lack of Transportation (Non-Medical):Physical Activity: Days of Exercise per Week: Minutes of Exercise per Session:Stress: Feeling of Stress :Social Connections: Frequency of Communication with Friends and Family: Frequency of Social Gatherings with Friends and Family: Attends [employer] Services: Active Member of Clubs or Organizations: Attends Club or Organization Meetings: Marital Status:Intimate Partner Violence: Fear of Current or Ex-Partner: Emotionally Abused: Physically Abused: Sexually Abused:Past Surgical History:Procedure Laterality Date bladder surgeyReview of SystemsReview of SystemsConstitutional: Negative.HENT: Negative.Eyes: Negative.Respiratory: Negative.Cardiovascular: Negative.Gastrointestinal: Negative.Endocrine: Negative.Genitourinary: Negative.Musculoskeletal: Negative.Skin: Negative.Allergic/Immunologic: Negativ e.Neurological: Negative.Hematological: Negative.Psychiatric/Behavioral: Negative.There were no vitals filed for this visit.Exam:Const: Appears pleasant. No signs of apparent distress present. Alert andoriented. Patient is a good historian.Head/Face: Atraumatic, normocephalic and no lesions or masses.Eyes: Conjunctivae pink. No icterus of the sclerae bilaterally.ENMT: Oral mucosa: pink and moist with no lesions.Neck: Supple. Palpation reveals no lymphadenopathy, swelling or tenderness.Trachea midline.Resp: Respirations are regular. Lungs are clear bilaterally.CV: Rate is regular. Rhythm is regular. Extremities: No clubbing, cyanosis oredema.Breasts: Breast exam was performed while patient was in a supine position and dago sitting position. Breasts are medium size and symmetrical. No dimpling of thebreasts bilaterally. Breasts are normal and no dominant mass on both breasts.Bilateral infraclavicular nodes are non-palpable. Nipples: No discharge orinversion of the nipples bilaterally. Axillae: Axillae are normal to palpationbilaterally, but no lymphadenopathy of the axillae.Musculo: Walks with a normal gait for age. Upper Extremities: Full ROMbilaterally. Lower Extremities: Full ROM bilaterally.Skin: No jaundice, lesion or rash.Neuro: Neuro reveals no focal deficits.1. Benign neoplasm of left breast2. Breast calcifications3. Dense breast4. Breast cancer screening, high risk patient5. Abnormal finding on radiological examination of breast Ultrasound breastlimited RightI sent her to [facility] which showed a new nodule in the right breast 8mmfor which follow up was recommended.Assessment: The patient has a stable bilateral mammogram and left sonogram randolph benign breast exam.Plan: The patient will follow up in 6 months for reexamination with a repeatright sonogram. She was instructed to continue self breast exams. In themeantime, patient will call with any problems, questions, or concerns. Name Value Range Interpretation Code Description Data Ann rce(s) Supporting Document(s) ID Date Data Source [id number] 10/15/2020 10:05:[address] [facility] [address] [facility] DENSE BREASTS BILATERALCLINICAL HISTORY: Dense breasts.COMPARISON: Left breast ultrasound 10/15/2020 and 03/28/2020TECHNIQUE: High-resolution ultrasound was performed of each breast in all 4 quadrants and in the retroareolar regions.FINDINGS: Echogenic breast tissue is seen throughout each breast.Right breast 3 o'clock position 4 cm from nipple was a hypoechoic ovoid shaped lesion 8 x 7 x 5 mm with hyperechoic center likely a likely a macro calcification. This likely corresponds to a small nodular density with adjacent calcification seen on the mammogram.Lesion 8 o'clock position left breast was described on diagnostic left breast ultrasound same day.IMPRESSION: Small nodular density with probable macro calcification 3 o'clock position 4 cm nipple right breast. Although this likely corresponds to the stable density seen on the mammogram, as this was not seen previously by ultrasound, repeat right breast ultrasound is recommended in 6 months.CLA SSIFICATION: BI-RADS 3 - PROBABLY BENIGN FINDINGSACR Breast Density: C- Heterogeneously denseResultCode: BR 3 CPatient will receive a reminder letter from our office approximately two weeks prior to the recommended follow up date.Dictated by: BLAKE MILLARD M.D. on 10/15/2020lectronically Signed by: BLAKE MILLARD M.D. on 10/15/2020 10:34 AMTranscribed by: clarissa 10/15/2020 10:34 AM CDS G Code: , ,CDS Modifier: , ,cc: Name Value Range Interpretation Code Description Data Ann rce(s) Supporting Document(s) ID Date Data Source [id number] 10/15/2020 09:10:[address] [facility] DIGI DORIE MAMMOGRAM DIAG BL W CAD W TOMOSYNTHESISCLINICAL HISTORY: Bilateral biopsies with benign results. Abnormal imaging. Last Clinical Breast Exam: April 2020. Tyrer-Cuzick Model 10- year risk: 2.7% (Average: 3.3%) Tyrer-Cuzick Model lifetime risk: 8.3% (Average: 10.0%).COMPARISON: 03/28/2020 and 11/29/2019 mammogram from [facility]: Craniocaudal and oblique views were obtained digitally. Craniocaudal views were reviewed by CAD. Digital Breast Tomosynthesis was obtained.FINDINGS: The breast tissue is heterogeneously dense, which could obscure detection of small masses.No dominant mass, suspicious microcalcification, architectural distortion or skin/nipple thickening or retraction is seen.There are no significant changes compared to the prior study/studies.IMPRESSION: Negative mammogram with Digital Breast Tomosynthesis.A follow up mammogram is recommended in one year as per the [employer].ACR Breast Density:C- Heterogeneously denseCLASSIFICATION: BI-RADS 1 - NEGATIVEResultCode: BR 1 CDISCLAIMER: According to the [employer] and the [employer], any patient with a lifetime risk assessment greater than 20% or patients with dense breasts (heterogeneously or extremely dense), may benefit from additional screening tests for breast cancer. Further screening tests for patients with dense breasts (heterogeneously or extremely dense) should be based upon the patient's breast cancer risk status. All patients, having their mammogram with [facility], with a lifetime risk assessment greater than 20% or with dense breasts, will be given the opportunity to meet with our certified breast health navigator to discuss their risk and further imaging options.Further screening tests include Ultrasound and MR (Magnetic Resonance) imaging.Dictated by: BLAKE MILLARD M.D. on 10/15/2020lectronically Signed by: BLAKE MILLARD M.D. on 10/15/2020 09:25 AMTranscribed by: lisandra on 10/15/2020 09:25 AMCDS G code: , ,CDS Modifier: , ,cc: Name Value Range Interpretation Code Description Data Ann rce(s) Supporting Document(s) ID Date Data Source [id number] 10/15/2020 09:01:00 AM EDT [facility] ULTR ASOUND BREAST LEFT LIMITEDCLINICAL HISTORY: Bilateral biopsies with benign results. Abnormal imaging. Last Clinical Breast Exam: April 2020. Tyrer-Cuzick Model 10-year risk: 2.7% (Average: 3.3%) Tyrer-Cuzick Model lifetime risk: 8.3% (Average: 10.0%).COMPARISON: Ultrasound guided biopsy 04/10/2020, ultrasound breast 03/28/2020FINDINGS: Targeted ultrasound was performed of the inner lower quadrant of the left breast. At the 8 o'clock position 8 cm from nipple was a tiny complex cyst 5 x 4 x 2 mm, previously 9 x 7 x 3 mm. No new lesion at this site is identifiedIMPRESSION: Interval decreased size in small complex cyst inner lower quadrant left breast.Dictated by: BLAKE MILLARD M.D. on 10/15/2020lectronically Signed by: BLAKE MILLARD M.D. on 10/15/2020 09:34 AMTranscribed by: lisandra on 10/15/2020 09:34 [facility] G code: ,CDS Modifier: ,cc: Name Value Range Interpretation Code Description Data Ann rce(s) Supporting Document(s) ID Date Data Source [id number] 09/24/2020 12:00:00 PM EDT [facility] ([facility]) Name Value Range Interpretation Code Description Data Ann rce(s) Supporting Document(s) TP Reflex HPV ASCUS Laboratory test result [facility] ([facility]) SPECIMEN PART------ A. Cervical, Endocervical, ThinPrep Pap ([employer]) CYTOLOGY HX-------- Other Information:Previous Normal Pap: 09/14/19 Post-menopausal FINAL DIAGNOSIS---- INTERPRETATION: Negative for Intraepithelial Lesion or Malignancy. SPECIMEN ADEQUACY:Satisfactory for evaluation. Endocervical/transformation zone component present. TP Reflex HPV ASCUS Laboratory test result MEDNIKKI ([facility]) ID Date Data Source TSH 06/18/2020 12:00:00 AM EDT eCW1 ([facility]) Name Value Range Interpretation Code Description Data Ann rce(s) Supporting Document(s) 4.040 0.358-3.740 THYROID STIMULATING HORM ONE eCW1 ([facility]) ID Date Data Source Comprehensive Metabolic Profile (CMP) 06/18/2020 12:00:00 AM EDT eCW1 ([facility]) Name Value Range Interpretation Code Description Data Ann rce(s) Supporting Document(s) 75 70-100 GLUCOSE, FASTING eCW1 ([facility]) 11 7-18 BLOOD UREA NITROGEN eCW1 ([facility]) 0.83 0.55-1.30 CREATININE FOR GFR eCW1 ([facility]) 140 136-145 SODIUM LEVEL eCW1 ([facility]) > 60.0 >51 GLOMERULAR FILTRATION RATE eCW 1 ([facility]) 30 21-32 CARBON DIOXIDE LEVEL eCW1 ([facility]) 4.5 3.5-5.1 POTASSIUM SERUM eCW1 ([facility]) 105 98-107 CHLORIDE LEVEL eCW1 ([facility]) 17 7-37 AST/SGOT eCW1 ([facility]) 9.4 8.5-10.1 CALCIUM LEVEL eCW1 ([facility]) 19 12-78 ALT/SGPT eCW1 ([facility]) 0.2 0.2-1.0 BILIRUBIN,TOTAL eCW1 ([facility]) 99 45-117 ALKALINE PHOSPHATASE eCW1 ([facility]) 7.1 6.4-8.2 TOTAL PROTEIN eCW1 ([facility]) 3.7 3.2-5.2 ALBUMIN eCW1 ([facility] hospital) 1.1 1.2-2.2 ALBUMIN/GLOBULIN RATIO eCW1 (Replaced by [facility]) ID Date Data Source CBC - Complete Blood Count 06/18/2020 12:00:00 AM EDT eCW1 ( [facility]) Name Value Range Interpretation Code Description Data Ann rce(s) Supporting Document(s) 8.8 4.0-10.0 WHITE BLOOD COUNT eCW1 ([facility]) 46.9 36.0-47.0 HEMATOCRIT eCW1 ([facility]) 4.97 4.00-5.40 RED BLOOD COUNT eCW1 ([facility]) 14.8 12.0-15.5 HEMOGLOBIN eCW1 ([facility]) 29.8 27.0-33.0 MEAN CORPUSCULAR HEMOGLOB IN eCW1 ([facility]) 94.4 80.0-96.0 MEAN CORPUSCULAR VOLUME e CW1 ([facility]) 13.5 11.5-14.5 RED CELL DISTRIBUTION WID TH eCW1 ([facility]) 31.6 32.0-36.5 MEAN CORPUSCULAR HGB CONC eCW1 ([facility]) 389 150-450 PLATELET COUNT, AUTOMATED eCW1 ([facility]) ID Date Data Source [id number] 04/13/2020 03:33:46 PM EST [facility] INFORMATIONPatient MRN Name Date of Age Gend*PT [id number] Sydnee Palmer 1965 54 years F ---PT Location Admission Date/Time Visit ID Attending Provider --- --- --- --- EPI ID CSN Admitting Provider [id number] ---Addended by: DEBRA FRYE on: 04/13/2020 03:33 PM Modules accepted: Orders Name Value Range Interpretation Code Description Data Ann rce(s) Supporting Document(s) ID Date Data Source [id number] 04/13/2020 03:19:23 PM EST [facility] INFORMATIONPatient MRN Name Date of Age Gend*PT [id number] Sydnee Palmer 1965 54 years F ---PT Location Admission Date/Time Visit ID Attending Provider --- --- --- --- EPI ID CSN Admitting Provider [id number] ---Addended by: DEBRA FRYE on: 04/13/2020 03:19 PM Modules accepted: Orders Name Value Range Interpretation Code Description Data Ann rce(s) Supporting Document(s) ID Date Data Source [id number] 04/10/2020 02:55:49 PM EST [facility] NT INFORMATIONPatient MRN Name Date of Age Gend*PT [id number] Sydnee Palmer 1965 54 years F ---PT Location Admission Date/Time Visit ID Attending Provider --- --- --- --- EPI ID CSN Admitting Provider [id number] ---04/10/20 Sydnee Palmer [id number] female 54 yearsYvbrandie Palmer is referred by [facility] for abnormal imaging. She wentfor a screening mammogram on 11/29/19 which showed bilateral group ofcalcifications. She also had a focal asymmetry in the left breast. Spot viewswere done and bx was recommended on bilateral breast calcifications. She wasalso found to have a hypoechoic nodule measuring 8 mm in the left breast whichu/s guided core bx was recommended.She denies any nipple discharge, dimpling or nipple retractions. She denies anypalpable masses. She is 5 para 3, the age of of her first child is16. She was 10/13 at age of menarche and 47 with menopause. She denies any HRT.She denies any previous breast surgeries or biopsies. She goes yearly for hermammograms. She has no family history of breast cancer. She has no familyhistory of ovarian, prostate or pancreatic cancers. She comes in today for asurgical evaluation.Current Meds: No current outpatient medications on file.Allergies: No Known Drug AllergiesHistory reviewed. No pertinent past medical history.Family HistoryProblem Relation Age of Onset Cancer Mother Ovarian cancer Mother Cancer Father Throat cancer FatherSocial HistorySocioeconomic History Marital status: Spouse name: Not on file Number of children: Not on file Years of education: Not on file Highest education level: Not on fileOccupational History Not on fileSocial Needs Financial resource strain: Not on file Food insecurity: Worry: Not on file Inability: Not on file Transportation needs: Medical: Not on file Non-medical: Not on fileTobacco Use Smoking status: Never Smoker Smokeless tobacco: Never UsedSubstance and Sexual Activity Alcohol use: Not Currently Drug use: Never Sexual activity: Not on fileLifestyle Physical activity: Days per week: Not on file Minutes per session: Not on file Stress: Not on fileRelationships Social connections: Talks on phone: Not on file Gets together: Not on file Attends latter-day service: Not on file Active member of club or organization: Not on file Attends meetings of clubs or organizations: Not on file Relationship status: Not on file Intimate partner violence: Fear of current or ex partner: Not on file Emotionally abused: Not on file Physically abused: Not on file Forced sexual activity: Not on fileOther Topics Concern Bike Helmet Not Asked History of Falls Not Asked Self-Exams Not Asked Caffeine Concern Not Asked Hobby Hazards Not Asked Sleep Concern Not Asked Daily Calcium Supplement Not Asked Lead Exposure Not Asked Special Diet Not Asked Daily Vitamin D Supplement Not Asked Service Not Asked Stress Concern Not Asked Domestic Violence in home Not Asked Radon exposure Not Asked Weight Concern Not Asked Exercise Not Asked Seat Belt Not Asked Well water Not Asked Firearms in home Not AskedSocial History Narrative Not on filePast Surgical History:Procedure Laterality Date [facility]Review [facility] 1139BP: 126/84Pulse: 72Exam:Const: Appears pleasant. No signs of apparent distress present. Alert andoriented. Patient is a good historian.Head/Face: Atraumatic, normocephalic and no lesions or masses.Eyes: Conjunctivae pink. No icterus of the sclerae bilaterally.ENMT: Oral mucosa: pink and moist with no lesions.Neck: Supple. Palpation reveals no lymphadenopathy, swelling or tenderness.Trachea midline.Resp: Respirations are regular. Lungs are clear bilaterally.CV: Rate is regular. Rhythm is regular. Extremities: No clubbing, cyanosis oredema.Breasts: Breast exam was performed while patient was in a supine position and dago sitting position. Breasts are medium size and symmetrical. No dimpling of thebreasts bilaterally. Breasts are normal and no dominant mass on both breasts.Bilateral infraclavicular nodes are non-palpable. Nipples: No discharge orinversion of the nipples bilaterally. Axillae: Axillae are normal to palpationbilaterally, but no lymphadenopathy of the axillae.Musculo: Walks with a normal gait for age. Upper Extremities: Full ROMbilaterally. Lower Extremities: Full ROM bilaterally.Skin: No jaundice, lesion or rash.Neuro: Neuro reveals no focal deficits.1. Abnormal finding on breast imagingAssessment: The patient has an area of suspicion in the bilateral breast(s).We recommend a/an stereotactic core biopsy bilaterally of the calcifications andultrasound guided core biopsy of the indeterminate nodule in the left breast.The procedure and the post procedural period was discussed with the patient.The risks and the benefits were discussed and included but did not limited tobleeding and infections. The patient understands and accepts the risks andcomplication and would like to move forward with the procedure.Plan: The patient is scheduled for bilateral stereotactic core biopsy andultrasound guided core biopsy of the left breast(s). We will contact herwith the results. In the meantime, patient will call with any problems,questions, or concerns. Name Value Range Interpretation Code Description Data Ann rce(s) Supporting Document(s) ID Date Data Source [id number] 04/10/2020 02:39:00 PM EST [facility] DIGI DORIE MAMMOGRAPHY LEFT WO CADCLINICAL HISTORY: Mass. Calcifications.COMPARISON: 04/10/2020, 03/28/2020, and 11/29/2019.TECHNIQUE: Craniocaudal and oblique views of the left breast were obtained digitally and reviewed by CAD.FINDINGS: A vignesh shaped biopsy clip is now seen within the left breast medially and inferiorly. A significant hematoma is not seen.IMPRESSION: A vignesh shaped biopsy clip is now seen within the left breast medially and inferiorly. A significant hematoma is not seen. Attempting to obtain prior mammograms of the left breast. Once these are obtained a stereotactic biopsy of a cluster of microcalcifications within the left breast will be performed.DISCLAIMER: According to the [employer] and the [employer] [employer], any patient with a lifetime risk assessment greater than 20% or patients with dense breasts (heterogeneously or extremely dense), may benefit from additional screening tests for breast cancer. Further screening tests for patients with dense breasts (heterogeneously or extremely dense) should be based upon the patient's breast cancer risk status. All patients, having their mammogram with [facility], with a lifetime risk assessment greater than 20% or with dense breasts, will be given the opportunity to meet with our certified breast health navigator to discuss their risk and further imaging options.Further screening tests include Ultrasound and MR (Magnetic Resonance) imaging.Dictated by: DEBORA ACOSTA M.D. on 04/10/2020lectronically Signed by: DEBORA ACOSTA M.D. on 04/10/2020 04:29 PMTranscribed by: clarissa 04/10/2020 04:29 PM CDS G Code: ,CDS Modifier: ,cc: Name Value Range Interpretation Code Description Data Ann rce(s) Supporting Document(s) ID Date Data Source [id number] 04/10/2020 02:37:00 PM EST [facility] ST[facility] EOTACTIC BREAST BIOPSY RIGHTADDENDUM: Additional mammograms from [facility] dated 03/28/2020 and 11/29/2019 now available.Grouping of calcifications within the left breast upper slightly inner quadrant has a relatively benign appearance on additional mammograms of the left breast dated 04/10/2020. Recommend a follow-up mammogram of the left breast in six months time rather than stereotactic biopsy of these calcifications.Classification: BI-RADS 3 probably benign findings.Dictated by: DEBORA ACOSTA M.D. on 04/17/2020lectronically Signed by: DEBORA ACOSTA M.D. on 04/17/2020 10:19 AMTranscribed by: clarissa 04/17/2020 10:19 AM CDS G Code: , ,CDS Modifier: , ,cc: End of Addendum Report ADDENDUM: Still awaiting prior mammograms from [facility]. Once these are obtained patient will be scheduled for stereotactic biopsy of the left breast.Dictated by: DEBORA ACOSTA M.D. on 04/13/2020lectronically Signed by: DEBORA ACOSTA M.D. on 04/13/2020 03:58 PMTranscribed by: [email or web address] 04/13/2020 03:58 PM CDS G Code: , ,CDS Modifier: , ,cc: End of Addendum Report ADDENDUM: A surgical pathology report from [facility] dated 04/12/2020 is now available.Specimen received.A: Ultrasound-guided left breast vacuum assisted core biopsy 8 o'clock, 8 cm from the nipple, complex.B: Right stereotactic breast biopsy with calcifications.Diagnosis.A. Left breast 8 o'clock, 8 cm from the nipple, ultrasound-guided core biopsy: Benign breast tissue with fibrocystic changes.B. Right breast stereotactic core-biopsy: Benign breast tissue with fibrocystic changes and microcalcifications.Pathologic findings are concordant with radiographic findings. 3Recommend continued routine mammograms.Dictated by: DEBORA ACOSTA M.D. on 04/13/2020lectronically Signed by: DEBORA ACOSTA M.D. on 04/13/2020 02:51 PMTranscribed by: haider 04/13/2020 02:51 PM CDS G Code: , ,CDS Modifier: , ,cc: End of Addendum Report CLINICAL HISTORY: Mass. Calcifications.COMPARISON: 04/10/2020, 03/28/2020, and 11/29/2019.TECHNIQUE: Pr ocedure, side and site protocol was utilized. The procedure, risks, and benefits were explained to the patient. Material risks include but are not limited to bleeding and infection. The patient understood, her questions were answered and informed consent was obtained.Stereotactic Localization: With the patient in a sitting position the cluster of suspicious microcalcifications was stereotactically localized.Vacuum Assisted Biopsy: The skin was prepped and draped in a sterile fashion. Local anesthesia was obtained superficially utilizing lidocaine with sodium bicarbonate then deeper in the breast par enchymal utilizing lidocaine with epinephrine. A skin incision was made. Multiple vacuum assisted core biopsies were obtained using a 10 Gauge Mammotome biopsy needle.Specimen Radiograph: Specimen radiograph demonstrates the microcalcifications in the core samples.Tissue Marker Placement: Status-post obtaining satisfactory biopsy samples, a tissue marker was placed in the surgical bed. Hemostasis was obtained at the incision site. The patient tolerated the procedure.FINDINGS: Digital CC and MLO views of the right breast were obtained. Microcalcifications have decreased. A biopsy clip is seen.IMPRES CELI: Stereotactic biopsy of microcalcifications as described above. Pathology results are pending.CLASSIFICATION: BI-RADS 4 - SUSPICIOUS ABNORMALITY.DISCLAIMER: According to [employer] and the [place] [employer], any patient with a lifetime risk assessment greater than 20% of patients with dense breasts (heterogeneously or extremely dense), may benefit from additional screening tests for breast cancer. Further screening tests for patients with dense breasts (heterogeneously or extremely dense) should be based upon the patient's breast cancer risk status. All patients, having their mammogram with [facility], with a lifetime risk assessment greater than 20% or with dense breasts, will be given the opportunity to meet with our certified breast health navigator to discuss their risk and further imaging options.Further screening test includes Ultrasound and MR (Magnetic Resonance) imaging. While BSGI imaging (Gammagram) or 3D Mammography (Tomosynthesis) can be used, the radiation dose should be taken into consideration.Dictated by: DEBORA ACOSTA M.D. on 1 Transcribed by: clarissa 04/10/2020 02:42 PM CDS G Code: , ,CDS Modifier: , ,cc: Name Value Range Interpretation Code Description Data Ann rce(s) Supporting Document(s) ID Date Data Source [id number] 04/10/2020 01:21:00 PM EST [facility]: VACU UM ASSIST BIOPSY W US GUIDANCE LEFT BREASTCLINICAL HISTORY: Mass. Calcifications.FINDINGS: Prior to the study, the ultrasound of left breast was reviewed.BREAST ULTRASOUND: Left breast ultrasound was performed. The 0800 hours 8 cm from the nipple mass was confirmed to be present. A rufus on the skin was made, through which the mass could be biopsied.ULTRASOUND GUIDED CORE BIOPSY: The skin was prepped with alcohol and draped. Under direct ultrasound visualization, local anesthesia was applied at the skin entrance site using a 25 gauge hypodermic needle. A small skin incision was made. Under direct ultrasound visualization and guidance, a 12 gauge Vicora needle was placed along the inferior edge of the mass. 5 core biopsy samples were taken.ULTRASOUND GUIDED CLIP PLACEMENT:Under direct ultrasound visualization a vignesh shaped biopsy Clip was placed into the biopsy cavity and documented in place. The introducer was removed.Compression was applied to the biopsy site. Post biopsy images show no complications.IMPRESSION: Successful ultrasound vacuum assisted core biopsy. The procedure was well tolerated. An immediate post-procedure complication was not identified. Pending surgical pathology results, an addendum will be provided.Dictated by: DEBORA ACOSTA M.D. on 04/10/2020lectronically Signed by: DEBORA ACOSTA M.D. on 04/10/2020 01:28 PMTranscribed by: clarissa 04/10/2020 01:28 PM CDS G Code: ,CDS Modifier: ,cc: Name Value Range Interpretation Code Description Data Ann rce(s) Supporting Document(s) ID Date Data Source [id number] 03/28/2020 12:00:00 AM EST [facility] Marcus Reed MD Patient Name: SYDNEE PALMER [facility] Date of : 1965[place] [address] Date of Exam: 1P#: Fax: [phone] EXAM: MAMMO DIAG INC CAD BILATERAL AND ULTRASOUND BREAST UNI LIMITEDCLINICAL INFORMATION: Diagnostic.The patient gives a history of having obtained prior mammograms in a van.The only exam for review is dated 11/29/2019 and they are synthesized imagesfrom previous DBT exam. Those DBT images do not accompany the exam. Thatprior exam showed a focal area of asymmetry in the lower/inner aspect ofthe left breast along with calcifications in the left breast upper,slightly inner quadrant along with a cluster of calcifications in the rightbreast lower/inner aspect.In addition to standard CC and MLO views using FFDM, DBT bilateral exam wasobtained along with diagnostic digital magnified spot compression viewsbilaterally over the regions of interest.Diagnostic ultrasonography of the nodule in the left breast near the 8o'clock position was also performed.In the right breast lower/inner aspect, there is a cluster ofcalcifications.In the left breast upper/slightly inner quadrant, there is a grouping ofcalcifications which vary in size, shape, and radiographic density. Alsoin the left breast in the lower/inner aspect near the 8 o'clock position,there is a persistent nodule on the spot compression views which is seenbest on DBT imaging.Ultrasonography of the left breast over the nodule shows a hypoechoicslightly complex nodule measuring 8 mm in its greatest dimension andexhibiting some posterior wall enhancement and increased throughtransmission. Shear wave elastography on this shows relatively low kPavalues.IMPRESSION:BI- RADS Category 4 - Bilateral Suspicious Finding(s).1. There is a suspicious cluster of calcifications in the right breast asdescribed above for which biopsy is recommended.2. There is a grouping of calcifications in the left breast which varysomewhat in size, shape, and radiographic density. Biopsy for thosecalcifications is also recommended. In addition, in the left breast, thereis a non-simple irregular cystic structure for which I cannot confirmbenignity and for which ultrasound guided biopsy is recommended.MICHAEL Calvillo/Zamzam cuadra for referring SYDNEE PALMER to our office. Electronically Signed - VIOLETA WRAY DO 03/28/20 17:26 Name Value Range Interpretation Code Description Data Ann rce(s) Supporting Document(s) ID Date Data Source [id number] 03/28/2020 12:00:00 AM EST [facility] Marcus Reed MD Patient Name: SYDNEE PALMER M[facility] Date [place] : 1965[place] [address] Date of Exam: 03/28/2020#: Fax: [phone] EXAM: MAMMO DIAG INC CAD BILATERAL AND ULTRASOUND BREAST UNI LIMITEDCLINICAL INFORMATION: Diagnostic.The patient gives a history of having obtained prior mammograms in a van.The only exam for review is dated 11/29/2019 and they are synthesized imagesfrom previous DBT exam. Those DBT images do not accompany the exam. Thatprior exam showed a focal area of asymmetry in the lower/inner aspect ofthe left breast along with calcifications in the left breast upper,slightly inner quadrant along with a cluster of calcifications in the rightbreast lower/inner aspect.In addition to standard CC and MLO views using FFDM, DBT bilateral exam wasobtained along with diagnostic digital magnified spot compression viewsbilaterally over the regions of interest.Diagnostic ultrasonography of the nodule in the left breast near the 8o'clock position was also performed.In the right breast lower/inner aspect, there is a cluster ofcalcifications.In the left breast upper/slightly inner quadrant, there is a grouping ofcalcifications which vary in size, shape, and radiographic density. Alsoin the left breast in the lower/inner aspect near the 8 o'clock position,there is a persistent nodule on the spot compression views which is seenbest on DBT imaging.Ultrasonography of the left breast over the nodule shows a hypoechoicslightly complex nodule measuring 8 mm in its greatest dimension andexhibiting some posterior wall enhancement and increased throughtransmission. Shear wave elastography on this shows relatively low kPavalues.IMPRESSION:BI- RADS Category 4 - Bilateral Suspicious Finding(s).1. There is a suspicious cluster of calcifications in the right breast asdescribed above for which biopsy is recommended.2. There is a grouping of calcifications in the left breast which varysomewhat in size, shape, and radiographic density. Biopsy for thosecalcifications is also recommended. In addition, in the left breast, thereis a non-simple irregular cystic structure for which I cannot confirmbenignity and for which ultrasound guided biopsy is recommended.MICHAEL Calvillo/Zamzam you for referring SYDNEE PALMER to our office. Electronically Signed - VIOLETA WRAY DO 03/28/20 17:26 Name Value Range Interpretation Code Description Data Ann rce(s) Supporting Document(s) ID Date Data Source [id number] 12/11/2019 03:55:09 PM EDT [facility] MAMMO DIGITAL SCREENING BILATERAL [id number] INAL RESULTInterpreted by:Breana Grigsby MDBILATERAL DIGITAL MAMMOGRAM WITH COMPUTER-AIDED DETECTIONINDICATION: Screening. The patient reported no current breast problems, no personal history of a breast procedure and no family history of breast cancer.COMPARISON: None. Baseline.LAST CLINICAL BREAST EXAM: ? Summer 2019.Breast Cancer Risk Assessment, KRUPA model:5 year risk:0.9%Lifetime risk:5.9%TECHNIQUE: Craniocaudal and mediolateral oblique digital mammograms were obtained. Tomosynthesis was utilized. Computer-aided detection was utilized. Exam was performed on the mobile mammography unit.BILATERAL MAMMOGRAPHIC FINDINGS: The breasts are heterogeneously dense, which may obscure small masses. Density category C. There is a faint group of microcalcifications within the inferior right breast which is best visualized on oblique view. This may correlate with microcalcifications visualized medially within the breast on craniocaudal view. There also is a gr oup of calcifications within the upper inner left breast. In addition, there is a focal asymmetry within the lower inner left breast. No suspicious dominant mass or area of architectural distortion is visualized.IMPRESSION:1. Microcalcifications within the inferior right breast on baseline mammogram.2. Microcalcifications within the upper inner left breast on baseline mammogram.3. Left lower inner quadrant focal asymmetry on baseline mammogram.4. Mammographically dense breasts.BI-RADS 0: Incomplete, additional imaging is neededRECOMMENDATION:1. Diagnostic imaging of the right breast to include later al view and magnification views. Additional imaging may be needed.2. Diagnostic imaging of the left breast to include lateral view, magnification views and targeted ultrasound. Additional imaging may be needed.3. In view of patient's breast density she may also benefit from supplemental imaging with breast ultrasound.This document has been electronically signed by Breana Grigsby MD on 12/11/2019 3:53 PM Name Value Range Interpretation Code Description Data Ann rce(s) Supporting Document(s) Procedure Social History Code Duration Value Status Description Data Source(s ) Alcohol intake 10/15/2020 12:00:00 AM EDT Current drinker of al cohol (finding) completed Current drinker of alcohol (finding) [facility] Tobacco use and exposure 10/15/2020 12:00:00 AM EDT Never used co mpleted Never used [facility] Smoking 10/15/2020 12:00:00 AM EDT Former smoker completed Former smoker [facility] Smoking 09/24/2020 12:00:00 AM EDT Non-smoker, Non-drink er, Non-drug User completed Non-smoker, Non-drinker, Non-drug User [facility] ([facility] Smoking 08/24/2020 12:00:00 AM EDT Former Smoker completed Former Smoker eCW1 ([facility]) Smoking 08/24/2020 12:00:00 AM EDT Former Smoker completed Former Smoker eCW1 ([facility]) Smoking 08/24/2020 12:00:00 AM EDT Former Smoker completed Former Smoker eCW1 ([facility]) Smoking 08/24/2020 12:00:00 AM EDT Former Smoker completed Former Smoker eCW1 ([facility]) Smoking 08/24/2020 12:00:00 AM EDT Former Smoker completed Former Smoker eCW1 ([facility]) Smoking 07/02/2020 12:00:00 AM EDT Former Smoker completed Former Smoker eCW1 ([facility]) Smoking 07/02/2020 12:00:00 AM EDT Former Smoker completed Former Smoker eCW1 ([facility]) Smoking 07/02/2020 12:00:00 AM EDT Former Smoker completed Former Smoker eCW1 ([facility]) Vital Signs ID Date Data Source UNK Name Value Range Interpretation Code Description Data Source(s) Body surface area Derived from formula 1.78 m2 1.78 m2 [facility] (Health system) Systolic blood pressure 126 mm[Hg] 126 mm[Hg] M [facility] (Health system) Diastolic blood pressure 82 mm[Hg] 82 mm[Hg] [facility] (Health system) Body height 63.5 [in_i] 63.5 [in_i] [facility] ([facility]) 5'3.50" Body weight 163.00 [lb_av] 163.00 [lb_av] [facility] Body mass index (BMI) [Ratio] 28.4 kg/m2 28.4 k g/m2 [facility] (Health system) [place] body weight 115 [lb_av] 115 [lb_av] [facility] (Health system) Body weight 73.937 kg 73.937 kg [facility] ([facility]) Body height 160 cm 160 cm [facility] Body weight 74.844 kg 74.844 kg [facility] Body mass index (BMI) [Ratio] 29.23 kg/m2 29.23 kg/m2 [facility] Systolic blood pressure 114 mm[Hg] 114 mm[Hg] M [facility] ([facility]) Diastolic blood pressure 66 mm[Hg] 66 mm[Hg] [facility] Body height 63.25 [in_i] 63.25 [in_i] [facility] 5'3.25" Body weight 163.00 [lb_av] 163.00 [lb_av] [facility] ([facility] Body mass index (BMI) [Ratio] 28.6 kg/m2 28.6 k g/m2 [facility] ([facility]) Body surface area Derived from formula 1.78 m2 1.78 m2 [facility] ([facility]) Body weight 162.8 [lb_av] 162.8 [lb_av] eCW1 (Replaced by [facility]) Body height 63.5 [in_i] 63.5 [in_i] eCW1 ([facility]) Body mass index (BMI) [Ratio] 28.38 kg/m2 28.38 kg/m2 eCW1 ([facility]) Heart rate 91 /min 91 /min eCW1 ([facility]) Respiratory rate 18 /min 18 /min eCW1 ([facility]) Body temperature 97.9 [degF] 97.9 [degF] eCW1 ( [facility]) Systolic blood pressure 120 mm[Hg] 120 mm[Hg] e CW1 ([facility]) Diastolic blood pressure 80 mm[Hg] 80 mm[Hg] eCW1 ([facility]) Body weight 164.2 [lb_av] 164.2 [lb_av] eCW1 (Replaced by [facility]) Body height 63.5 [in_i] 63.5 [in_i] eCW1 ([facility]) Body mass index (BMI) [Ratio] 28.63 kg/m2 28.63 kg/m2 eCW1 ([facility]) Heart rate 85 /min 85 /min eCW1 ([facility]) Respiratory rate 16 /min 16 /min eCW1 ([facility]) Body temperature 98.6 [degF] 98.6 [degF] eCW1 ( [facility]) Body weight 165.2 [lb_av] 165.2 [lb_av] eCW1 (Replaced by [facility]) Body height 63.5 [in_i] 63.5 [in_i] eCW1 ([facility]) Respiratory rate 16 /min 16 /min eCW1 ([facility]) Body temperature 99.3 [degF] 99.3 [degF] eCW1 ( [facility]) Systolic blood pressure 118 mm[Hg] 118 mm[Hg] e CW1 ([facility]) Body mass index (BMI) [Ratio] 28.80 kg/m2 28.80 kg/m2 eCW1 ([facility]) Diastolic blood pressure 76 mm[Hg] 76 mm[Hg] eCW1 ([facility]) Heart rate 84 /min 84 /min eCW1 ([facility]) ID Date Data Source [id number] 12/11/2019 03:55:09 PM EDT [facility] Name Value Range Interpretation Code Description Data Source(s) WEIGHT RECORDED [address] [facility] Body height Measured 63 in 63 in [facility] Patient Treatment Plan of Care Planned Activity Planned Date Details Description Data Source (s) meloxicam 15 MG Oral Tablet 10/01/2020 12:00:00 AM EDT [facility] Omeprazole 20 MG Delayed Release Oral Capsule 10/01/2020 12:00:00 A M EDT [facility] Sertraline 25 MG Oral Tablet 10/01/2020 12:00:00 AM EDT [facility] Levothyroxine Sodium 0.025 MG Oral Tablet 10/01/2020 12:00:00 AM ED T [facility] Physical Therapy evaluate and treat 08/24/2020 12:00:00 AM EDT eCW1 ([facility]) Physical Therapy evaluate and treat 08/24/2020 12:00:00 AM EDT eCW1 ([facility]) Physical Therapy evaluate and treat 08/24/2020 12:00:00 AM EDT eCW1 ([facility]) Physical Therapy evaluate and treat 08/24/2020 12:00:00 AM EDT eCW1 ([facility]) Physical Therapy evaluate and treat 08/24/2020 12:00:00 AM EDT eCW1 ([facility]) Levothyroxine Sodium 0.025 MG Oral Tablet 07/02/2020 12:00:00 AM ED T eCW1 ([facility]) Levothyroxine Sodium 0.025 MG Oral Tablet 07/02/2020 12:00:00 AM ED T eCW1 ([facility]) Levothyroxine Sodium 0.025 MG Oral Tablet 07/02/2020 12:00:00 AM ED T eCW1 ([facility]) Levothyroxine Sodium 0.025 MG Oral Tablet 07/02/2020 12:00:00 AM ED T eCW1 ([facility])
--- OUTSIDE RECORDS SUMMARY | 2021-01-29 12:37 | CCD ---
Author Author [facility] [employer] Organization [facility] [employer] Address Unknown Phone Unavailable Care Team Providers Care Leather Lacer Name Role Phone Lexi Corona Unavailable PROBLEMS Type Condition ICD9-CM Code [id number] Code Onset Dates Condition S tatus W/U Status Risk SNOMED Code Notes Problem Environmental and seasonal allergies J30.89 Act will confirmed 821950787 Problem Stress incontinence N39.3 Active confirmed 11036124 Resolved after surgery Problem Hypothyroidism (acquired) E03.9 Active confirmed 022168124 Responding well to low-dose levothyroxine 25 mcg daily, with less fatigue Problem Depressive disorder F32.9 Active confirmed [id number] She is agreeable to starting the sertraline now, so I have resubmitted that prescription Problem Memory loss R41.3 Active confirmed [id number] She'll start sertraline tonight and I will see her back in a month Problem Flat wart B07.8 Active confirmed [id number] Derm in September Problem Gastroesophageal reflux disease, esophagitis pre sence not specified K21.9 Active confirmed [id number] Her insurance does not cover Nexium, so I am prescribing omeprazole, which she has taken in the past with good results Problem Non-seasonal allergic rhinitis, unspecified trigger J30.89 Active confirmed [id number] I reassured Darlyn araya there is sensation of fluid in her ears is likely due to some eustachian tube dysfunction. She will go back to using nasal spray ALLERGIES No Known Allergies ENCOUNTERS from 1965 to 2020-12-10 Encounter Location Date Provider Diagnosis [facility] [place] [address] [place] [id number] Sep, Lexi Corona IMMUNIZATIONS Vaccine Route Administration Date Status Influenza [...] Notes Total Score: 2 Interpretation: Alcohol Education Anabaptist: Question Answer Notes Anabaptist No congregational beliefs that would impact health care. Drug [...] Notes Start Da te End Date Status Meloxicam 15 MG 1 tablet Orally Once a day as needed for pain fo r 30 Days Jul, Active Sertraline HCl 25 MG 1 tablet Orally Once a day for 30 Days Jul, Active Omeprazole 20 MG 1 capsule Orally Once a day for 30 Days 1 Jul, Active Levothyroxine Sodium 25 MCG 1 tablet in the morning on an empty stomach Orally Once a day for 30 Days June, Active Physical Therapy evaluate and treat Mechanical eval & tx M25.511, pain in right shoulder 33x/wk x for 30 Days Jul, Ac tive PROCEDURES No Information RESULTS No Results REASON FOR VISIT derm referral MEDICAL (GENERAL) HISTORY Type Description Date Medical History GERD Medical History seasonal allergies Medical History stress incontinence Surgical History umbilical hernia 2006 Surgical History sonogram left breast, and regular biopsy on the right Hospitalization History childbirth Goals Section No Information Health Concerns No Information MEDICAL EQUIPMENT No Information MENTAL STATUS No Information FUNCTIONAL STATUS No Information ASSESSMENTS No Information PLAN OF TREATMENT Medication Medication Name Sig Start Date Stop Date Physical Therapy evaluate and treat Mechanical eval & tx M25.511, pain in right shoulder 33x/wk x for 30 Days Jul, Insurance Providers Payer Name Payer Address Payer Phone Insured Name Patient Relati onship to Insured Coverage Start Date Coverage End Date [facility] [address] [address] [place] [address] [address] [facility] [id number] [facility] [place] [facility] [id number] [address] self
--- NOTE | 2021-01-29 13:52 | ROOR ---
Patient Name: Darlyn Palmer Procedure Date: 01/29/2021 1:36 PM Date of : 1965 Age: 55 Room: [facility] Gender: Female Note Status: Finalized Procedure: Upper GI endoscopy Indications: Dysphagia, Heartburn, Follow-up of eosinophilic esophagitis Providers: Emile Mattson MD Referring MD: [place] Marie PA-C Requesting Provider: Medicines: Monitored Anesthesia Care Complications: No immediate complications. Procedure: Pre-Anesthesia Assessment: - The heart rate, respiratory rate, oxygen saturations, blood pressure, adequacy of pulmonary ventilation, and response to care were monitored throughout the procedure. The Endoscope was introduced through the mouth, and advanced to the second part of duodenum. The upper GI endoscopy was accomplished without difficulty. The patient tolerated the procedure well. Findings: Three superficial esophageal ulcers were found in the lower third of the esophagus. The largest lesion was 15 mm in largest dimension. Biopsies were taken with a cold forceps for histology. Mucosal changes including ringed esophagus and longitudinal furrows were found in the upper third of the esophagus and in the middle third of the esophagus. Biopsies were taken with a cold forceps for histology. Small Hiatal Hernia. The examined duodenum was normal. Impression: - Large shallow esophageal ulcers. Biopsied (r/o HSV/CMV/Reflux/EoE). - Esophageal mucosal changes consistent with eosinophilic esophagitis. Biopsied. - Small Hiatal Hernia. - Normal examined duodenum. Recommendation: - Use Prilosec (omeprazole) 20 mg PO BID indefinitely. - Telephone endoscopist for pathology results in 2 weeks. Procedure Code(s): --- Professional --- 09863, Esophagogastroduodenoscopy, flexible, transoral; with biopsy, single or multiple Diagnosis Code(s): --- Professional --- R12, Heartburn R13.10, Dysphagia, unspecified K22.8, Other specified diseases of esophagus K22.10, Ulcer of esophagus without bleeding CPT copyright 2019 [employer]. All rights reserved. The codes documented in this report are preliminary and upon equipment cleaner review may be revised to meet current compliance requirements. Emile Mattson MD Emile Mattson MD 01/29/2021 1:52:18 PM Electronically signed by Emile Mattson MD Number of Addenda: 0 Note Initiated On: 01/29/2021 1:36 PM Estimated Blood Loss: Estimated blood loss: none.
[2021-01-29] MEDS ORDERED: LIDOCAINE 2% 100MG/5ML SDV (FOR ANES.) As Ordered ONE (13:56)
[2021-01-29] MEDS ORDERED: propofoL 200 MG/20 ML VIAL As Ordered ONE (13:56)
--- NOTE | 2021-01-29 14:10 | ROOR ---
Patient Name: Darlyn Palmer Procedure Date: 01/29/2021 1:37 PM Date of : 1965 Age: 55 Room: [facility] Gender: Female Note Status: Finalized Procedure: Colonoscopy Indications: High risk colon cancer surveillance: Personal history of colonic polyps, Last colonoscopy: August 2017 Providers: Emile Mattson MD Referring MD: CAROLINA Marie PA-C Requesting Provider: Medicines: Monitored Anesthesia Care Complications: No immediate complications. Procedure: Pre-Anesthesia Assessment: - The heart rate, respiratory rate, oxygen saturations, blood pressure, adequacy of pulmonary ventilation, and response to care were monitored throughout the procedure. The Colonoscope was introduced through the anus and advanced to the terminal ileum, with identification of the appendiceal orifice and IC valve. Findings: The perianal and digital rectal examinations were normal. A 5 mm polyp was found in the sigmoid colon. The polyp was sessile. The polyp was removed with a cold snare. Resection and retrieval were complete. Mild sigmoid diverticulosis and small internal hemorrhoids. The exam was otherwise without abnormality on direct and retroflexion views. Impression: - One 5 mm polyp in the sigmoid colon, removed with a cold snare. Resected and retrieved. - Mild sigmoid diverticulosis and small internal hemorrhoids. - The examination was otherwise normal on direct and retroflexion views. Recommendation: - Repeat colonoscopy in 5 years for surveillance. Procedure Code(s): --- Professional --- 68455, Colonoscopy, flexible; with removal of tumor(s), polyp(s), or other lesion(s) by snare technique Diagnosis Code(s): --- Professional --- K63.5, Polyp of colon Z86.010, Personal history of colonic polyps CPT copyright 2019 [employer]. All rights reserved. The codes documented in this report are preliminary and upon block hand review may be revised to meet current compliance requirements. Emile Mattson MD Emile Mattson MD 01/29/2021 2:09:31 PM Electronically signed by Emile Mattson MD Number of Addenda: 0 Note Initiated On: 01/29/2021 1:37 PM Estimated Blood Loss: Estimated blood loss: none.
[2021-01-29 14:28] VITALS: BP 115/76
== END 2021-01-29 14:38 | disposition home or self-care (01) ==
LOC: M OPP 12:32
PROVIDERS: ATTEND Internal Medicine Gastroenterology
DX: Z12.11 Encounter for screening for malignant neoplasm of colon (principal); Z86.010 Personal history of colon polyps; K63.5 Polyp of colon; K57.30 Diverticulosis of large intestine without perforation or abscess without bleeding; K64.8 Other hemorrhoids; K44.9 Diaphragmatic hernia without obstruction or gangrene; K22.10 Ulcer of esophagus without bleeding; K22.89 Other specified disease of esophagus; Z79.899 Other long term (current) drug therapy

== ENCOUNTER → 2021-05-07 | Outpatient (REF) | payer BC ==
[~2021-05-07] MED LIST changes: -NS 1,000 ML IV ONE; +OMEP-173; -OMEP-218
[2021-05-07 13:33] LABS: APPEARANCE, URINE HAZY (CLEAR); BACTERIA, URINE AUTO NEGATIVE (NEGATIVE); BILIRUBIN, URINE AUTO NEGATIVE (NEGATIVE); BLOOD, URINE BLOOD 1+ (NEGATIVE); COLOR, URINE YELLOW (YELLOW); GLUCOSE, URINE (UA) AUTO NEGATIVE (NEGATIVE); KETONE, URINE AUTO NEGATIVE (NEGATIVE); LEUKOCYTE ESTERASE, URINE AUTO NEGATIVE (NEGATIVE); MUCUS, URINE SMALL (NEGATIVE); NITRITE, URINE AUTO NEGATIVE (NEGATIVE); PROTEIN, URINE AUTO NEGATIVE (NEGATIVE); RBC, URINE AUTO 1 /HPF (0-3); SPECIFIC GRAVITY URINE AUTO 1.016 (1.002-1.035); SQUAMOUS EPITHELIAL CELL UR AU 1 /HPF (0-6); UROBILINOGEN, URINE AUTO 0.2 mg/dL (0.0-2.0); WBC, URINE AUTO 0 /HPF (0-3)
== END ==
LOC: M SFHCADAM 12:27
PROVIDERS: ATTEND Physician Assistant Medical
DX: R39.15 Urgency of urination (principal)

== ENCOUNTER → 2021-05-27 | Outpatient (CLI) | payer BC | LOC: M LABSMTC 09:49 | PROVIDERS: ATTEND Anesthesiology | DX: Z01.812 Encounter for preprocedural laboratory examination (principal); Z20.822 Contact with and (suspected) exposure to COVID-19 ==

== ENCOUNTER 2021-05-31 14:27 | Day surgery (SDC) | payer BC ==
[~2021-05-31] VITALS: Ht 160 cm; Wt 76.2 kg
[~2021-05-31 14:27] MED LIST changes: +ACET32TAB PO; -LEVO25TA5; +LEVO25TA5 PO; +LIDOCAINE 2% 100MG/5ML SDV (FOR ANES.) As Ordered ONE; +MOBI4TAB PO; +NS 1,000 ML IV ONE; -OMEP-173; +OMEP-173 PO; +propofoL 200 MG/20 ML VIAL As Ordered ONE
== END 2021-05-31 17:00 | disposition home or self-care (01) ==
LOC: M OPP 14:27
PROVIDERS: ATTEND Internal Medicine Gastroenterology
DX: K44.9 Diaphragmatic hernia without obstruction or gangrene (principal); K27.9 Peptic ulcer, site unspecified, unspecified as acute or chronic, without hemorrhage or perforation; K21.00 Gastro-esophageal reflux disease with esophagitis, without bleeding; K22.89 Other specified disease of esophagus; Z80.1 Family history of malignant neoplasm of trachea, bronchus and lung; Z80.41 Family history of malignant neoplasm of ovary; Z79.899 Other long term (current) drug therapy

== ENCOUNTER → 2021-12-26 | Outpatient (REF) | payer BC ==
[~2021-12-26] MED LIST changes: -LIDOCAINE 2% 100MG/5ML SDV (FOR ANES.) As Ordered ONE; -NS 1,000 ML IV ONE; -propofoL 200 MG/20 ML VIAL As Ordered ONE
== END ==
LOC: M SFHCWAGY 17:11
PROVIDERS: ATTEND Nurse Practitioner Family
DX: Z12.4 Encounter for screening for malignant neoplasm of cervix (principal)

== ENCOUNTER → 2022-06-30 | Outpatient (REF) | payer BC ==
[2022-06-30 13:25] LABS: ALBUMIN 3.6 G/DL (3.2-5.2); ALKALINE PHOSPHATASE 91 U/L (46-116); ALT/SGPT 9 U/L (7.0-40); AST/SGOT 18 U/L (<34); BASO # 0.1 10^3/uL (0.0-0.2); BASO % 1.1 % (0.0-1.0); BILIRUBIN,TOTAL 0.3 MG/DL (0.3-1.2); BLOOD UREA NITROGEN 13 MG/DL (9-23); CALCIUM LEVEL 8.9 MG/DL (8.5-10.1); CARBON DIOXIDE LEVEL 28 MMOL/L (20-31); CHLORIDE LEVEL 103 MMOL/L (98-107); CHOLESTEROL LEVEL 251 MG/DL (<200); CHOLESTEROL RISK RATIO 4.45 (<5); CREATININE FOR GFR 0.88 MG/DL (0.55-1.30); EOS # 0.4 10^3/uL (0.0-0.5); EOS % 5.5 % (0.0-3.0); GLOMERULAR FILTRATION RATE > 60.0 (>51); GLUCOSE, FASTING 88 MG/DL (60-100); HDL CHOLESTEROL 56.4 MG/DL (>40); HEMATOCRIT 41.1 % (36.0-47.0); HEMOGLOBIN 12.5 g/dl (12.0-15.5); LDL CHOLESTEROL 164.8 MG/DL (<100); LYMPH # 1.9 10^3/uL (1.5-5.0); LYMPH % 28.7 % (24.0-44.0); MEAN CORPUSCULAR HEMOGLOBIN 26.2 pg (27.0-33.0); MEAN CORPUSCULAR HGB CONC 30.4 g/dl (32.0-36.5); MONO # 0.4 10^3/uL (0.0-0.8); MONO % 6.5 % (2.0-8.0); NEUTROPHILS # 3.8 10^3/uL (1.5-8.5); NEUTROPHILS % 57.9 % (36.0-66.0); NON-HDL-C 194.6 MG/DL; PLATELET COUNT, AUTOMATED 337 10^3/uL (150-450); POTASSIUM SERUM 4.2 MMOL/L (3.5-5.1); RED BLOOD COUNT 4.78 10^6/uL (4.00-5.40); SODIUM LEVEL 138 MMOL/L (136-145); TOTAL PROTEIN 6.7 G/DL (5.7-8.2); TRIGLYCERIDES LEVEL 149 MG/DL (<150); WHITE BLOOD COUNT 6.6 10^3/uL (4.0-10.0)
[2022-06-30 13:26] LABS: THYROID STIMULATING HORMONE 1.856 uIU/ML (0.55-4.78); TOTAL 25(OH) VITAMIN D 24.9 NG/ML (20.0-100.0)
== END ==
LOC: M SFHCADAM 10:55
PROVIDERS: ATTEND Physician Assistant Medical
DX: Z00.00 Encounter for general adult medical examination without abnormal findings (principal); K21.9 Gastro-esophageal reflux disease without esophagitis; E03.9 Hypothyroidism, unspecified; F43.9 Reaction to severe stress, unspecified; E66.3 Overweight

== ENCOUNTER → 2023-07-02 | Outpatient (REF) | payer BC ==
[2023-07-02 13:36] LABS: ALBUMIN 3.3 G/DL (3.2-5.2); ALKALINE PHOSPHATASE 96 U/L (46-116); ALT/SGPT 13 U/L (7.0-40); AST/SGOT 11 U/L (<34); BILIRUBIN,TOTAL 0.2 MG/DL (0.3-1.2); BLOOD UREA NITROGEN 16 MG/DL (9-23); CALCIUM LEVEL 9.3 MG/DL (8.5-10.1); CARBON DIOXIDE LEVEL 28 MMOL/L (20-31); CHLORIDE LEVEL 107 MMOL/L (98-107); CHOLESTEROL LEVEL 270 MG/DL (<200); CHOLESTEROL RISK RATIO 4.58 (<5); CREATININE FOR GFR 0.74 MG/DL (0.55-1.30); GLOMERULAR FILTRATION RATE > 60.0 (>51); GLUCOSE, FASTING 84 MG/DL (60-100); HDL CHOLESTEROL 58.9 MG/DL (>40); LDL CHOLESTEROL 181.3 MG/DL (<100); NON-HDL-C 211.1 MG/DL; POTASSIUM SERUM 4.8 MMOL/L (3.5-5.1); SODIUM LEVEL 142 MMOL/L (136-145); TOTAL PROTEIN 6.8 G/DL (5.7-8.2); TRIGLYCERIDES LEVEL 149 MG/DL (<150)
[2023-07-02 13:37] LABS: THYROID STIMULATING HORMONE 3.002 uIU/ML (0.55-4.78)
[2023-07-02 13:38] LABS: TOTAL 25(OH) VITAMIN D 27.4 NG/ML (20.0-100.0)
[2023-07-02 13:42] LABS: BASO # 0.1 10^3/uL (0.0-0.2); BASO % 1.2 % (0.0-1.0); EOS # 0.7 10^3/uL (0.0-0.5); EOS % 9.9 % (0.0-3.0); HEMATOCRIT 37.1 % (36.0-47.0); HEMOGLOBIN 11.3 g/dl (12.0-15.5); LYMPH # 2.1 10^3/uL (1.5-5.0); MEAN CORPUSCULAR HEMOGLOBIN 24.8 pg (27.0-33.0); MEAN CORPUSCULAR HGB CONC 30.5 g/dl (32.0-36.5); MEAN CORPUSCULAR VOLUME 81.4 fl (80.0-96.0); MONO # 0.6 10^3/uL (0.0-0.8); MONO % 8.2 % (2.0-8.0); NEUTROPHILS # 3.4 10^3/uL (1.5-8.5); NEUTROPHILS % 49.6 % (36.0-66.0); PLATELET COUNT, AUTOMATED 417 10^3/uL (150-450); RED BLOOD COUNT 4.56 10^6/uL (4.00-5.40); WHITE BLOOD COUNT 6.9 10^3/uL (4.0-10.0)
== END ==
LOC: M SFHCADAM 09:48
PROVIDERS: ATTEND Physician Assistant Medical
DX: K21.9 Gastro-esophageal reflux disease without esophagitis (principal); E03.9 Hypothyroidism, unspecified; E66.3 Overweight; E78.5 Hyperlipidemia, unspecified; E55.9 Vitamin D deficiency, unspecified

== ENCOUNTER → 2023-07-03 | Outpatient (REF) | payer BC ==
[2023-07-03 12:58] LABS: PERCENT SATURATION 4.2 % (13.2-45.0)
[2023-07-03 12:59] LABS: FERRITIN 1.9 NG/ML (7.3-270.7)
[2023-07-03 13:01] LABS: TOTAL 25(OH) VITAMIN D 25.2 NG/ML (20.0-100.0)
== END ==
LOC: M SFHCADAM 09:14
PROVIDERS: ATTEND Physician Assistant Medical
DX: D64.9 Anemia, unspecified (principal); E55.9 Vitamin D deficiency, unspecified

== ENCOUNTER → 2023-10-05 | Outpatient (REF) | payer BC ==
[2023-10-05 15:02] LABS: HEMATOCRIT 38.1 % (36.0-47.0); HEMOGLOBIN 11.2 g/dl (12.0-15.5); MEAN CORPUSCULAR HEMOGLOBIN 23.6 pg (27.0-33.0); MEAN CORPUSCULAR HGB CONC 29.4 g/dl (32.0-36.5); MEAN CORPUSCULAR VOLUME 80.2 fl (80.0-96.0); PERCENT SATURATION 5.2 % (13.2-45.0); PLATELET COUNT, AUTOMATED 402 10^3/uL (150-450); RED BLOOD COUNT 4.75 10^6/uL (4.00-5.40); WHITE BLOOD COUNT 5.5 10^3/uL (4.0-10.0)
[2023-10-05 15:05] LABS: FERRITIN 1.8 NG/ML (7.3-270.7); TOTAL 25(OH) VITAMIN D 26.7 NG/ML (20.0-100.0)
== END ==
LOC: M SFHCADAM 07:55
PROVIDERS: ATTEND Physician Assistant Medical
DX: D50.9 Iron deficiency anemia, unspecified (principal); E55.9 Vitamin D deficiency, unspecified

== ENCOUNTER 2023-10-29 11:10 | Outpatient (CLI) | payer BC ==
[~2023-10-29] VITALS: Ht 160 cm; Wt 75.0 kg
[2023-10-29 11:20] VITALS: BP 139/71; O2SAT 100
[2023-10-29] MEDS: ACETAMINOPHEN 650MG PO PRIOR TO INFUSION PO ONE (11:29)
[2023-10-29] MEDS: dexameTHASONE 20 MG IV PRIOR TO INFUSION IV ONE (11:29)
[2023-10-29] MEDS: diphenhydrAMINE 25MG PO PRIOR TO INFUSION PO ONE (11:29)
[2023-10-29] MEDS ORDERED: methylPREDNISolone 125MG 2ML VIAL IV PRN (11:30)
[2023-10-29] MEDS ORDERED: ALBUTEROL SULFATE 2.5MG/0.5ML INH NEB SOLN INH PRN (11:30)
[2023-10-29] MEDS ORDERED: NS 1,000 ML IV SCH (11:30)
[2023-10-29] MEDS ORDERED: diphenhydrAMINE 50MG/ML VIAL IV PRN (11:30)
[2023-10-29] MEDS ORDERED: EPINEPHrine INJ 1 MG/ML 1ML AMP IM PRN (11:30)
[2023-10-29] MEDS: IRON SUCROSE 500 MG in NS 250 ML OVER 4 HRS IV ONE (11:46)
[2023-10-29 13:00] VITALS: BP 133/69; O2SAT 100
[2023-10-29 14:00] VITALS: BP 127/67; O2SAT 98
[2023-10-29 15:59] VITALS: BP 139/71; O2SAT 97
== END 2023-10-29 16:00 ==
LOC: M INFU 11:10
PROVIDERS: ATTEND Physician Assistant Medical
DX: D50.9 Iron deficiency anemia, unspecified (principal)
CPT/HCPCS: 96365; 96366; 96375; J1100; J1756

== ENCOUNTER → 2024-01-05 | Outpatient (REF) | payer BC ==
[2024-01-05 13:23] LABS: HEMATOCRIT 45.2 % (36.0-47.0); HEMOGLOBIN 14.2 g/dl (12.0-15.5); MEAN CORPUSCULAR HGB CONC 31.4 g/dl (32.0-36.5); MEAN CORPUSCULAR VOLUME 86.1 fl (80.0-96.0); PLATELET COUNT, AUTOMATED 373 10^3/uL (150-450); RED BLOOD COUNT 5.25 10^6/uL (4.00-5.40); WHITE BLOOD COUNT 5.5 10^3/uL (4.0-10.0)
[2024-01-05 13:56] LABS: IRON (FE) 43 UG/DL (50-170)
[2024-01-05 13:57] LABS: ALBUMIN 3.4 G/DL (3.2-5.2); ALKALINE PHOSPHATASE 93 U/L (35-104); ALT/SGPT 13 U/L (7.0-40); AST/SGOT 12 U/L (<34); BILIRUBIN,TOTAL 0.3 MG/DL (0.3-1.2); BLOOD UREA NITROGEN 12 MG/DL (9-23); CALCIUM LEVEL 9.6 MG/DL (8.3-10.6); CARBON DIOXIDE LEVEL 28 MMOL/L (20-31); CHLORIDE LEVEL 106 MMOL/L (98-107); CHOLESTEROL LEVEL 309 MG/DL (<200); CHOLESTEROL RISK RATIO 4.99 (<5); CREATININE FOR GFR 0.77 MG/DL (0.55-1.30); GLOMERULAR FILTRATION RATE > 60.0 (>45); GLUCOSE, FASTING 67 MG/DL (74-106); HDL CHOLESTEROL 61.9 MG/DL (>40); LDL CHOLESTEROL 221.5 MG/DL (<100); NON-HDL-C 247.1 MG/DL; PERCENT SATURATION 13.5 % (13.2-45.0); POTASSIUM SERUM 4.7 MMOL/L (3.5-5.1); SODIUM LEVEL 142 MMOL/L (136-145); TOTAL IRON BINDING CAPACITY 318 UG/DL (250-425); TOTAL PROTEIN 6.8 G/DL (5.7-8.2); TRIGLYCERIDES LEVEL 128 MG/DL (<150)
== END ==
LOC: M SFHCADAM 08:05
PROVIDERS: ATTEND Physician Assistant Medical
DX: D50.9 Iron deficiency anemia, unspecified (principal); E78.5 Hyperlipidemia, unspecified

== ENCOUNTER → 2024-03-23 | Outpatient (CLI) | payer BC ==
[~2024-03-23] MED LIST changes: +E-Z-GAS II EFFERVESCENT PACKET (SODIUM BICARB./CITRIC ACID/SIMETHICONE) As Ordered ONE; +E-Z-HD 98% w/w 340GM SUSP BTL As Ordered ONE; +E-Z-PAQUE 96% w/w SUSP 176GM BTL As Ordered ONE
== END ==
LOC: M RAD 10:02
PROVIDERS: ATTEND Physician Assistant Medical
DX: R10.10 Upper abdominal pain, unspecified (principal); K21.9 Gastro-esophageal reflux disease without esophagitis

== ENCOUNTER → 2024-03-31 | Outpatient (CLI) | payer BC ==
[~2024-03-31] MED LIST changes: -E-Z-GAS II EFFERVESCENT PACKET (SODIUM BICARB./CITRIC ACID/SIMETHICONE) As Ordered ONE; -E-Z-HD 98% w/w 340GM SUSP BTL As Ordered ONE; -E-Z-PAQUE 96% w/w SUSP 176GM BTL As Ordered ONE
== END ==
LOC: M RAD 09:05
PROVIDERS: ATTEND Physician Assistant Medical
DX: K42.9 Umbilical hernia without obstruction or gangrene (principal)

== ENCOUNTER 2024-05-02 08:06 | Day surgery (SDC) | payer BC ==
[~2024-05-02] VITALS: Ht 160 cm; Wt 71.8 kg
[~2024-05-02 08:06] MED LIST changes: +APAP500T10 PO; +IRON1TAB2 PO; +OMEP1CAP73 PO; +SYNT25TA PO; +TUMS500C PO; +VITA100093 PO
[2024-05-02] MEDS ORDERED: propofoL 200 MG/20 ML VIAL As Ordered ONE (10:32)
[2024-05-02] MEDS ORDERED: LIDOCAINE 2% 100MG/5ML SDV (FOR ANES.) As Ordered ONE (10:32)
[2024-05-02 14:45] VITALS: BP 122/62; O2SAT 100
== END 2024-05-02 14:53 | disposition home or self-care (01) ==
LOC: M OPP 08:06
PROVIDERS: ATTEND Internal Medicine Gastroenterology
DX: K21.00 Gastro-esophageal reflux disease with esophagitis, without bleeding (principal); K44.9 Diaphragmatic hernia without obstruction or gangrene; R12 Heartburn; Z77.118 Contact with and (suspected) exposure to other environmental pollution; Z79.899 Other long term (current) drug therapy; E03.9 Hypothyroidism, unspecified; D64.9 Anemia, unspecified

== ENCOUNTER → 2024-05-09 | Outpatient (CLI) | payer BC | LOC: M RAD 08:15 | PROVIDERS: ATTEND Physician Assistant Medical | DX: K82.4 Cholesterolosis of gallbladder (principal) ==

== ENCOUNTER → 2024-05-16 | Outpatient (REF) | payer BC ==
[2024-05-16 18:12] LABS: BLOOD UREA NITROGEN 12 MG/DL (9-23); CALCIUM LEVEL 8.7 MG/DL (8.3-10.6); CARBON DIOXIDE LEVEL 30 MMOL/L (20-31); CHLORIDE LEVEL 98 MMOL/L (98-107); CREATININE FOR GFR 0.68 MG/DL (0.55-1.30); GLOMERULAR FILTRATION RATE > 60.0 (>45); GLUCOSE, FASTING 112 MG/DL (74-106); POTASSIUM SERUM 3.9 MMOL/L (3.5-5.1); SODIUM LEVEL 136 MMOL/L (136-145)
== END ==
LOC: M SFHCADAM 11:50
PROVIDERS: ATTEND Physician Assistant Medical
DX: N28.1 Cyst of kidney, acquired (principal)

== ENCOUNTER → 2024-05-25 | Outpatient (CLI) | payer BC ==
[~2024-05-25] MED LIST changes: +GASTROGRAFIN SOLUTION 30ML ONE; +ISOVUE-370 76% 100ML VIAL ONE
== END ==
LOC: M PLAIMG 08:03
PROVIDERS: ATTEND Physician Assistant Medical
DX: R93.5 Abnormal findings on diagnostic imaging of other abdominal regions, including retroperitoneum (principal); N28.1 Cyst of kidney, acquired

== ENCOUNTER → 2024-07-14 | Outpatient (REF) | payer BC ==
[~2024-07-14] MED LIST changes: +BUPR150T15 PO; -BUPR1TAB53 PO; -GASTROGRAFIN SOLUTION 30ML ONE; -ISOVUE-370 76% 100ML VIAL ONE
[2024-07-14 14:22] LABS: ALBUMIN 3.4 G/DL (3.2-5.2); BASO # 0.1 10^3/uL (0.0-0.2); BILIRUBIN,TOTAL 0.3 MG/DL (0.3-1.2); CALCIUM LEVEL 9.2 MG/DL (8.3-10.6); CHOLESTEROL RISK RATIO 5.09 (<5); CREATININE FOR GFR 0.76 MG/DL (0.55-1.30); EOS # 1.7 10^3/uL (0.0-0.5); GLOMERULAR FILTRATION RATE 89.7 (>45); HDL CHOLESTEROL 51.2 MG/DL (>40); HEMATOCRIT 44.1 % (36.0-47.0); HEMOGLOBIN 13.6 g/dl (12.0-15.5); LDL CHOLESTEROL 178.6 MG/DL (<100); MEAN CORPUSCULAR HEMOGLOBIN 29.4 pg (27.0-33.0); MEAN CORPUSCULAR HGB CONC 30.8 g/dl (32.0-36.5); MEAN CORPUSCULAR VOLUME 95.2 fl (80.0-96.0); MONO # 0.4 10^3/uL (0.0-0.8); MONO % 5.3 % (2.0-8.0); NEUTROPHILS # 3.2 10^3/uL (1.5-8.5); NEUTROPHILS % 43.3 % (36.0-66.0); NON-HDL-C 209.8 MG/DL; PLATELET COUNT, AUTOMATED 287 10^3/uL (150-450); POTASSIUM SERUM 4.8 MMOL/L (3.5-5.1); RED BLOOD COUNT 4.63 10^6/uL (4.00-5.40); TOTAL PROTEIN 6.5 G/DL (5.7-8.2); WHITE BLOOD COUNT 7.3 10^3/uL (4.0-10.0)
[2024-07-14 14:23] LABS: THYROID STIMULATING HORMONE 2.458 uIU/ML (0.55-4.78)
[2024-07-14 14:50] LABS: EOS % 23.3 % (0.0-3.0)
== END ==
LOC: M SFHCADAM 07:43
PROVIDERS: ATTEND Physician Assistant Medical
DX: E03.9 Hypothyroidism, unspecified (principal); E78.5 Hyperlipidemia, unspecified; K21.9 Gastro-esophageal reflux disease without esophagitis

== ENCOUNTER → 2024-07-19 | Outpatient (CLI) | payer BC | LOC: M EKG 11:59 | PROVIDERS: ATTEND Physician Assistant | DX: R00.2 Palpitations (principal) ==

== ENCOUNTER → 2024-10-06 | Outpatient (CLI) | payer BC ==
[2024-10-06 13:42] LABS: ALT/SGPT 15.0 U/L (7.0-40); AST/SGOT 19.0 U/L (<34); CALCIUM LEVEL 9.4 MG/DL (8.3-10.6); CARBON DIOXIDE LEVEL 28.0 MMOL/L (20-31); CHLORIDE LEVEL 104.0 MMOL/L (98-107); CHOLESTEROL LEVEL 322.0 MG/DL (<200); CHOLESTEROL RISK RATIO 4.46 (<5); CREATININE FOR GFR 0.81 MG/DL (0.55-1.30); GLOMERULAR FILTRATION RATE 83.1 (>45); LDL CHOLESTEROL 223.7 MG/DL (<100); NON-HDL-C 249.9 MG/DL; POTASSIUM SERUM 4.8 MMOL/L (3.5-5.1); SODIUM LEVEL 142.0 MMOL/L (136-145); TRIGLYCERIDES LEVEL 131.0 MG/DL (<150)
== END ==
LOC: M LABDRWAD 09:27
PROVIDERS: ATTEND Physician Assistant
DX: E78.5 Hyperlipidemia, unspecified (principal)

== ENCOUNTER → 2025-01-19 | Outpatient (REF) | payer BC ==
[2025-01-19 13:48] LABS: BASO # 0.1 10^3/uL (0.0-0.2); BASO % 1.1 % (0.0-1.0); EOS # 0.7 10^3/uL (0.0-0.5); EOS % 8.6 % (0.0-3.0); LYMPH # 2.2 10^3/uL (1.5-5.0); LYMPH % 28.1 % (24.0-44.0); MONO # 0.6 10^3/uL (0.0-0.8); MONO % 7.8 % (2.0-8.0); NEUTROPHILS # 4.3 10^3/uL (1.5-8.5); NEUTROPHILS % 54.3 % (36.0-66.0); PLATELET COUNT, AUTOMATED 385 10^3/uL (150-450)
[2025-01-19 13:54] LABS: ALT/SGPT 16.0 U/L (7.0-40); AST/SGOT 15.0 U/L (<34); CALCIUM LEVEL 9.1 MG/DL (8.3-10.6); CARBON DIOXIDE LEVEL 28.0 MMOL/L (20-31); CHLORIDE LEVEL 104.0 MMOL/L (98-107); CHOLESTEROL LEVEL 293.0 MG/DL (<200); CHOLESTEROL RISK RATIO 4.66 (<5); CREATININE FOR GFR 0.8 MG/DL (0.55-1.30); GLOMERULAR FILTRATION RATE 83.8 (>45); IRON (FE) 61.0 UG/DL (50-170); LDL CHOLESTEROL 200.0 MG/DL (<100); NON-HDL-C 230.2 MG/DL; PERCENT SATURATION 19.1 % (13.2-45.0); POTASSIUM SERUM 4.8 MMOL/L (3.5-5.1); SODIUM LEVEL 142.0 MMOL/L (136-145); TRIGLYCERIDES LEVEL 151.0 MG/DL (<150)
[2025-01-19 13:55] LABS: FREE T4 1.24 NG/DL (0.89-1.76)
[2025-01-19 13:56] LABS: TOTAL 25(OH) VITAMIN D 30.0 NG/ML (20.0-100.0)
[2025-01-19 14:07] LABS: ESTIMATED AVERAGE GLUCOSE 108.0 MG/DL (60-110)
== END ==
LOC: M SFHCADAM 09:39
PROVIDERS: ATTEND Physician Assistant Medical
DX: D50.9 Iron deficiency anemia, unspecified (principal); E78.5 Hyperlipidemia, unspecified; K21.9 Gastro-esophageal reflux disease without esophagitis; E55.9 Vitamin D deficiency, unspecified